=== PATIENT | female | born 1955 | race Caucasian/White ===

== ENCOUNTER 2016-08-05 04:05 | Inpatient (IN) | payer OTHER ==
[~2016-08-05] VITALS: Ht 162.6 cm; Wt 68.0 kg
[2016-08-05] VITALS (8 sets, daily range): BP systolic 100–150
[~2016-08-05 04:05] MED LIST: ACET-2165 PO; ALBU2.5V7 INH; ALPR0.2583 PO; BACL10TA PO; CLON0.5T4 PO; DEXT1CAP3 PO; DIVA125C4 PO; DOCU-144 PO; FLUT16SP16 NS; GABA-531 PO; LACT10SO66 PO; LAMO150T2 PO; LATA2.5D6 OP; OMEP20CA10 PO; OXYC-133 PO; POTA20LI PO; RESEYE OP; SERT100T PO; TIMO5DRO4 OP; ZOLP5TAB2 PO
--- NOTE | 2016-08-05 04:05 | NUR ---
Patient to ER bed 4 to gown for evaluation. Side rails up. Report given to NEHA RAJAN.
--- NOTE | 2016-08-05 04:06 | NUR ---
ER at bedside examining patient.
--- NOTE | 2016-08-05 04:10 | NUR ---
Patient arrived to ED ALOC with c/o R hip pain secondary to fall. Patient brought in by BLS coming from assisted living. Fall unwitnessed. No KO. No obvious deformitiy noted to the leg. History of CVA with R sided weakness. PMS present to the affected extremity. Will continue to monitor.
[2016-08-05] MEDS ORDERED: NACL 0.9% 1,000 ML IV ONE (05:17)
[2016-08-05] MEDS ORDERED: HYDROmorphone 1 MG INJ. 1 MG/ML AMPUL IVP ONE (05:30)
[2016-08-05] MEDS ORDERED: PROMETHAZINE HCL 25 MG/ML AMP IVP ONE (05:30)
[2016-08-05] MEDS ORDERED: ONDANSETRON HCL 4 MG/2 ML VIAL IVP PRN (05:45)
--- NOTE | 2016-08-05 05:45 | NUR ---
Radiology at bedside.
--- NOTE | 2016-08-05 06:36 | NUR ---
ADMISSION NOTE: Received patient from ER via gurney. Patient admitted with diagnosis of Right sided Thigh pain. Patient is awake, confused. Patient oriented to hospital room, call light, toileting, pain management and safety-teach back done. Patient informed that Katalina will be her nurse and that their room number is 112A. Personal belongings checked and Belongings List documented. Call light within reach.
[2016-08-05 06:39] LABS: PROTHROMBIN TIME 10.7 SECS (9.5-12.5)
[2016-08-05 06:40] LABS: CALCIUM 8.8 mg/dL (8.4-11.0); CREATININE 0.68 mg/dL (0.55-1.30); POTASSIUM 3.8 mmol/L (3.5-5.1)
[2016-08-05 06:45] LABS: ALBUMIN 3.4 g/dL (3.4-4.8); TOTAL BILIRUBIN 0.2 mg/dL (0.0-1.0); TOTAL PROTEIN, SERUM 8.1 g/dL (6.4-8.3)
--- NOTE | 2016-08-05 06:45 | NUR ---
Patient will be admitted to care of Dr. Gracia. Admitted to med/surg unit. Will go to room 112A. Belongings list completed. Summary report printed. Report will be given at bedside.
--- NOTE | 2016-08-05 07:46 | NUR ---
CONSULT ORTHO RIGHT FEMUR FRACTURE DR CROCKETT [phone] S/W JERRY NEWELL @ [phone]
--- NOTE | 2016-08-05 08:35 | NUR ---
INTIAL NOTE PT LAYING IN BED, EASY TO AROUSE, APPEARS CONFUSED AND DISORIENTED, SLURRED SPEECH, DIFFICULT TO UNDERSTAND, PT CANNOT STATE WHERE SHE IS OR WHERE SHE COMES FROM, PT ORIENTED TO ROOM AND USE OF CALL LIGHT , PT VERBALIZED UNDERSTANDING, SAFETY MEASURES IN PLACE, CALL LIGHT WITHIN REACH, WILL CONTINUE TO MONITOR Addendum: 08/05/16 at 1950 by Katalina Araiza RN IMPLANTED DEVICE NOTED TO PATIENTS LEFT LOWER ABDOMEN PER CONSERVATOR PT HAS AN IMPLANTED PAIN DEVICE.
--- NOTE | 2016-08-05 08:44 | NUR ---
Nutrition Update Roland Scale 17 noted. Pt admitted for R femur fracture. Diet: 2 gm Na BMI: 25.6 kg/m2 RD to follow per nutrition care standards.
[2016-08-05] MEDS ORDERED: ALBUTEROL SULFATE 0.083% 2.5 MG/3 ML VIAL.NEB INH PRN (08:45)
[2016-08-05] MEDS ORDERED: LACTULOSE 20 GM/30 ML UDC PO SCH (08:45)
[2016-08-05] MEDS ORDERED: ZOLPIDEM TARTRATE 5 MG TABLET PO SCH (08:45)
[2016-08-05] MEDS ORDERED: ALPRAZolam 0.25 MG TABLET PO SCH (08:45)
[2016-08-05] MEDS ORDERED: ACETAMINOPHEN 325 MG TABLET PO PRN ×2 (08:45)
[2016-08-05] MEDS: TIMOLOL MALEATE 0.5% OPHTHALMIC DROPS 5 ML OP SCH ×2 (09:00→21:22)
[2016-08-05] MEDS: cycloSPORINE 0.05%, 0.4 ML OPHTHALMIC EMULSION DROPERETTE OP SCH ×2 (09:00→21:23)
[2016-08-05] MEDS: FLUTICASONE PROPIONATE 50 mCg/SPRAY 16 GM NS SCH (09:00)
[2016-08-05] MEDS ORDERED: ALPRAZolam 0.25 MG TABLET PO PRN (09:15)
[2016-08-05] MEDS: ENOXAPARIN SODIUM 40 MG/0.4 ML SYRINGE SUBCUT SCH (09:46)
[2016-08-05] MEDS: GABAPENTIN 300 MG CAPSULE PO SCH ×3 (09:47→21:22)
[2016-08-05] MEDS: DIVALPROEX SODIUM 125 MG CAP.(DEPAKOTE SPRINKLE) PO SCH ×2 (09:47→21:24)
[2016-08-05] MEDS: OMEPRAZOLE 20 MG CAPSULE.DR (PriLOSEC) PO SCH (09:47)
[2016-08-05] MEDS: DOCUSATE SODIUM 100 MG CAPSULE PO SCH ×2 (09:47→21:23)
[2016-08-05] MEDS: BACLOFEN 10 MG TABLET PO SCH ×3 (09:48→21:24)
[2016-08-05] MEDS: clonazePAM 0.5 MG TABLET PO SCH ×2 (09:48→21:24)
[2016-08-05] MEDS: SERTRALINE HCL 50 MG TABLET PO SCH (09:49)
[2016-08-05] MEDS: LamoTRIgine 25 MG TABLET PO SCH ×2 (09:50→21:24)
--- NOTE | 2016-08-05 10:00 | NUR ---
ROUNDS PT CLEANED AND REPOSITIONED WITH PILLOW SUPPORT, NO S/S OF DISTRESS OR PAIN UNLESS MOVED, ALL NEEDS ATTENDED TO, SAFETY MEASURES IN PLACE,, CALL LIGHT WITHIN REACH, BED IN LOW POSITION AND LOCKED, WILL CONTINUE TO MONITOR
--- NOTE | 2016-08-05 11:31 | NUR ---
CONSERVATOR SHERMAN RYAN CALLED TO BE UPDATED ON PATIENTS STATUS, MADE AWARE OF HER DIAGNOSIS AND PHYSICIANS INVOLVED IN HER CARE, CONSERVATOR TO FOLLOW, MAY CONTACT HIM AT .
--- NOTE | 2016-08-05 12:29 | NUR ---
ROUNDS PT LAYING IN BED, RESTING, NO S/S OF DISTRESS OR PAIN, EVEN RISE AND FALL OF CHEST NOTED, SAFETY MEASURES IN PLACE, CALL LIGHT WITHIN REACH, SEIZURE PADS IN PLACE, BED IN LOW POSITION AND LOCKED, WILL CONTINUE TO MONITOR
--- NOTE | 2016-08-05 13:30 | NUR ---
DR CLARK MAKING ROUNDS, PT ASSESSED, MD JJ CASTRO CATHETER PLACEMENT, PT MADE AWARE AND AGREES, WILL FOLLOW UP
--- NOTE | 2016-08-05 14:12 | NUR ---
DR CLARK CALLEDMD STATED THAT HE SPOKE WITH CONSERVATOR FOR PT SHERMAN TEJADA INQUIRED IF PT WAS ABLE TO TRANSFER TO [facility] AND RECEIVE HER CARE, WILL FOLLOW UP WITH CASE MANAGEMENT AND NOTIFY DR STREETER TO CALL AND SPEAK WITH SHERMAN ALSO REGARDING CARE
--- NOTE | 2016-08-05 14:30 | NUR ---
CASTRO CATH: # 16 FR Castro catheter with 0 cc bulb inserted with use of sterile technique. Bulb inflated with 10 cc sterile water. Immediate return of 150 cc YELLOW urine noted. Bedside drainage bag placed below level of bladder. Urine sample collected and sent to lab at 1430. Pt tolerated procedure WELL.
[2016-08-05 14:52] LABS: BILIRUBIN,URINE NEGATIVE (NEGATIVE); CLARITY/URINE SL HAZY (CLEAR); COLOR,URINE YELLOW (YELLOW); GLUCOSE,URINE NEGATIVE (NEGATIVE); KETONES,URINE NEGATIVE (NEGATIVE); LEUKOCYTE ESTERASE ,URINE NEGATIVE (NEGATIVE); NITRITE, URINE POSITIVE (NEGATIVE); PROTEIN URINE NEGATIVE (NEGATIVE); UROBILINOGEN,URINE 0.2 (0.2-1.0)
[2016-08-05 15:03] LABS: BLOOD, URINE TRACE (NEGATIVE)
[2016-08-05] MEDS: MORPHINE 2 MG/ML INJ. SYRINGE IVP PRN ×2 (15:38→21:25)
--- NOTE | 2016-08-05 15:45 | NUR ---
ROUNDS PT REQUESTING PAIN MEDICATION AND ADMINISTERED PAIN MEDICATION AND REPOSITIONED PT WITH PILLOW SUPPORT, TV TURNED ON, PT HENSLEY COMFORTABLE, FEED AN APPLE SAUCE WITH MEDICATIONS, PT TOLERATED WELL, CALL LIGHT WITHIN REACH, SAFETY MEASURES IN PLACE, WILL FOLLOW UP
[2016-08-05 16:01] LABS: BACTERIA,URINE MODERATE /HPF (None Seen); RBC,URINE 0-3 /HPF (0-3)
[2016-08-05 16:02] LABS: MUCUS,URINE None Seen /LPF (None Seen); URINE AMORPHOUS PHOSPHATES 2+ /HPF (None Seen)
--- NOTE | 2016-08-05 17:44 | NUR ---
ROUNDS PT RESTING, SO S/S OF DISTRESS OR PAIN EVEN RISE AND FALL OF CHEST NOTED, TV ON PER PT REQUEST, SAFETY MEASURES IN PLACE, WILL CONTINUE TO MONITOR
[2016-08-05] MEDS: OXYCODONE/ACETAMINOPHEN *10*mg/325 mg TABLET PO PRN (18:15)
--- NOTE | 2016-08-05 18:31 | NUR ---
PATIENT FEED MASHED POTATOES, APPLE SAUCE AND CRANBERRY SAUCE, ABLE TO TOLERATE FOOD WELL, ADMINISTERED ORAL PAIN MEDICATION. SAFETY MEASURES IN PLACE, CALL LIGHT WITHIN REACH, WILL FOLLOW UP
--- NOTE | 2016-08-05 19:00 | NUR ---
CLOSING NOTE PT RESTING, EASY TO AROUSE, NO S/S OF DISTRESS OR SOB NOTED, PT COMPLAINS OF PAIN, WILL ENDORSE TO FOLLOWING SHIFT, PT FORGETS OF INJURY AND ATTEMPT TO MOVE LEG CAUSE BREAKTHROUGH PAIN, IV TO RIGHT HAND INTACT, CASTRO CATHETER IN PLACE AND DRAINING TO GRAVITY, ALL NEEDS ATTENDED TO THROUGH OUT SHIFT, SAFETY MEASURES MAINTAINED, BED IN LOW POSITION AND LOCKED, WILL GIVE REPORT TO FOLLOWING SHIFT.
--- NOTE | 2016-08-05 19:50 | NUR ---
INITIAL NOTE PT. RECEIVED DROWSY, BUT EASILY AROUSES. VSS WITH SLIGHTLY ELEVATED HEART RATE OF 101. AFEBRILE. SATING AT 94% ON ROOM AIR. PT. STATES SHE IS HAVING PAIN 10/10 AT THIS TIME. PT. WAS GIVEN PERCOCET, WILL GIVE MORPHINE ORDERED AT NEXT SCHEDULED DOSE FOR SEVERE PAIN. IV ACCESS TO RIGHT HAND, NO INFILTRATION NOTED. LEFT ABDOMINAL PAIN PUMP PALPATED. CASTRO CATHETER DRAINING TO GRAVITY. RIGHT UPPER LEG IS WARM TO TOUCH AND SWOLLEN AT THE KNEE UP, PT. HAS IT BENT AT THIS TIME. WILL LEAVE IT IN THIS POSITION FOR NOW TO AVOID CAUSING PAIN AND INJURING THE PT. PER DAY SHIFT BON HARDY WAS CALLED TODAY, NO CALL BACK AND HAS NOT YET SEEN THE PT. WILL WAIT TO HEAR BACK OR FOLLOW UP IN AM. SEIZURE PRECAUTIONS ARE IN PLACE, WITH SIDE RAILS PADDED. PLAN OF CARE HAS BEEN DISCUSSED, PT. VERBALIZES UNDERSTANDING. WILL CONT. TO MONITOR FOR ANY CHANGES. SAFETY AND FALL PRECAUTIONS IN PLACE. CALL LIGHT IN REACH, BED ALARM ON.
[2016-08-05] MEDS: LATANOPROST 2.5 ML DROPS (XALATAN) OP SCH (21:00)
[2016-08-05] MEDS: cefTRIAXone 1 GM in D5W 50 ML IV SCH (21:21)
--- NOTE | 2016-08-05 22:00 | NUR ---
rounds pt. was given prn morphine for pain. pt. stated she was having pain 6/10 at the time the medication was administered. with the assistance of occupational therapy co director and another rn, pt. was carefully repositioned to a comfortable position. pm medications were given with no aspiration noted. will cont. to monitor the pt. for any changes. safety and fall precautions in place. call light in reach.
--- NOTE | 2016-08-06 01:03 | NUR ---
rounds pt. resting in bed with eyes closed. chest rise and fall noted. no facial grimacing indicating any pain. will cont. to monitor for any changes. safety, fall and seizure precautions in place. call light in reach.
--- NOTE | 2016-08-06 02:35 | NUR ---
rounds pt. resting in bed with eyes closed. chest rise and fall noted. no s/s of sob or distress noted. no facial grimacing indicating pain. will cont. to monitor for changes. safety and fall precautions in place. call light in reach.
[2016-08-06] MEDS: MORPHINE 2 MG/ML INJ. SYRINGE IVP PRN ×3 (04:03→12:44)
--- NOTE | 2016-08-06 04:06 | NUR ---
ROUNDS PT. GIVEN PRN MORPHINE FOR PAIN. NO OTHER SIGNS OF DISTRESS NOTED AT THIS TIME. WILL CONT. TO MONITOR FOR CHANGES. SAFETY, FALL AND SEIZURE PRECAUTIONS IN PLACE. CALL LIGHT IN REACH.
[2016-08-06 04:28] VITALS: BP_SYST 117
--- NOTE | 2016-08-06 04:56 | NUR ---
Paged Dr. Rios for orders
--- NOTE | 2016-08-06 04:59 | NUR ---
pain/ md call dr franco paged for something stronger for pt pain. pt is heard yelling from the nurses station. claims to now have pain 10/10 despite being given morphine less than an hour ago. will follow up.
--- NOTE | 2016-08-06 05:21 | NUR ---
PAGED DR MANZO FOR ORDERS SECOND CALL
--- NOTE | 2016-08-06 05:23 | NUR ---
md call second call to dr franco. pt. is still heard yelling from the nurses station due to pain. informed pt. that md has been paged. pt verbalizes understanding.
--- NOTE | 2016-08-06 06:30 | NUR ---
CLOSING NOTES PT. RESTING IN BED QUIETLY AT THIS TIME. HAVE NOT RECEIVED A CALL BACK YET FROM MD. WILL NOTIFY DAY NURSE AND HAVE THEM FOLLOW UP. SAFETY, FALL AND SEIZURE PRECAUTIONS WERE MAINTAINED. CALL LIGHT REMAINS IN REACH.
[2016-08-06 07:01] LABS: BASOPHILS % (AUTO) 0.4 % (0.0-2.0); EOSINOPHILS # (AUTO) 0.1 K/uL (0.0-0.4); EOSINOPHILS % (AUTO) 0.8 % (0.0-4.0); HEMATOCRIT 29.9 % (36-48); LYMPHOCYTES # (AUTO) 2.9 K/uL (1.0-5.5); LYMPHOCYTES % (AUTO) 23.1 % (20.5-51.5); MEAN CORPUSCULAR HEMOGLOBIN 28 pg (27-31); MEAN CORPUSCULAR HGB CONC 33 % (32-36); MEAN CORPUSCULAR VOLUME 85 fL (79.0-98.0); MONOCYTES # (AUTO) 1.1 K/uL (0.0-1.0); MONOCYTES % (AUTO) 8.9 % (1.7-9.3); NEUTROPHILS # (AUTO) 8.4 K/uL (1.8-7.7); NEUTROPHILS % (AUTO) 66.8 % (40.0-70.0); PLATELET COUNT (AUTO) 256 K/uL (130-430); RED BLOOD CELL COUNT(AUTO) 3.52 MIL/uL (4.2-6.2); WHITE BLOOD COUNT (AUTO) 12.5 K/uL (4.8-10.8)
[2016-08-06 07:16] LABS: INR 1.1 (0.8-1.2); PROTHROMBIN TIME 11.4 SECS (9.5-12.5)
[2016-08-06 08:00] VITALS: BP_SYST 108
--- NOTE | 2016-08-06 08:00 | NUR ---
RN Opening Note patient lying on bed, have pain, patient vital signs are stable, patient was given her pain med as . will follow up
[2016-08-06] MEDS: TIMOLOL MALEATE 0.5% OPHTHALMIC DROPS 5 ML OP SCH ×2 (08:19→21:04)
[2016-08-06] MEDS: FLUTICASONE PROPIONATE 50 mCg/SPRAY 16 GM NS SCH (08:19)
[2016-08-06] MEDS: ENOXAPARIN SODIUM 40 MG/0.4 ML SYRINGE SUBCUT SCH (08:20)
[2016-08-06] MEDS: DOCUSATE SODIUM 100 MG CAPSULE PO SCH ×2 (08:20→21:06)
[2016-08-06] MEDS: BACLOFEN 10 MG TABLET PO SCH ×3 (08:20→21:06)
[2016-08-06] MEDS: clonazePAM 0.5 MG TABLET PO SCH ×2 (08:21→21:05)
[2016-08-06] MEDS: SERTRALINE HCL 50 MG TABLET PO SCH (08:21)
[2016-08-06] MEDS: DIVALPROEX SODIUM 125 MG CAP.(DEPAKOTE SPRINKLE) PO SCH ×2 (08:23→21:05)
[2016-08-06] MEDS: OXYCODONE/ACETAMINOPHEN *10*mg/325 mg TABLET PO PRN ×3 (08:23→21:06)
[2016-08-06] MEDS: GABAPENTIN 300 MG CAPSULE PO SCH ×3 (08:23→21:08)
[2016-08-06] MEDS: cycloSPORINE 0.05%, 0.4 ML OPHTHALMIC EMULSION DROPERETTE OP SCH ×2 (08:24→21:03)
[2016-08-06] MEDS: OMEPRAZOLE 20 MG CAPSULE.DR (PriLOSEC) PO SCH (08:42)
--- NOTE | 2016-08-06 10:00 | NUR ---
RN Rounds patient lying on bed, open eyes alert, can talk, patient denies pain , the TV was turned on for the patient as per her request
[2016-08-06 12:49] VITALS: BP_SYST 107
[2016-08-06] MEDS: LamoTRIgine 25 MG TABLET PO SCH ×2 (13:32→21:08)
[2016-08-06 16:33] VITALS: BP_SYST 94
--- NOTE | 2016-08-06 18:00 | NUR ---
RN Closing Notes patient lying on bed, denies pain or discomfort, will sign off to next shift
--- NOTE | 2016-08-06 19:05 | NUR ---
paged paged for Dr Bravo, dialed .
--- NOTE | 2016-08-06 19:40 | NUR ---
PM ASSESSMENT PT A/OX3, AFEBRILE. APHAGIC. NO SOB OR DISTRESS. LUNG SOUNDS BILAT CLEAR. +BOWEL SOUNDS. RT SIDED WEAKNESS. POC DISCUSSED, PT NODDED UNDERSTANDING. ORIENTED TO CALL LIGHT & W/IN REACH, SAFETY PRECAUTIONS IN PLACE, WILL CONTINUE TO MONITOR.
[2016-08-06] MEDS: LATANOPROST 2.5 ML DROPS (XALATAN) OP SCH (21:07)
[2016-08-06] MEDS: cefTRIAXone 1 GM in D5W 50 ML IV SCH (21:07)
--- NOTE | 2016-08-06 22:03 | NUR ---
RN ROUNDS PT IN BED SLEEPING CHEST RISING AND FALLING, NO DISTRESS NOTED. CALL LIGHT W/IN REACH, SAFETY PRECAUTIONS IN PLACE, WILL CONTINUE TO MONITOR.
[2016-08-07 00:12] VITALS: BP_SYST 119
--- NOTE | 2016-08-07 01:03 | NUR ---
RN ROUNDS PT IN BED SLEEPING CHEST RISING AND FALLING, NO DISTRESS NOTED. CALL LIGHT W/IN REACH, SAFETY PRECAUTIONS IN PLACE, WILL CONTINUE TO MONITOR.
--- NOTE | 2016-08-07 03:18 | NUR ---
RN ROUNDS PT IN BED SLEEPING CHEST RISING AND FALLING, NO DISTRESS NOTED. CALL LIGHT W/IN REACH, SAFETY PRECAUTIONS IN PLACE, WILL CONTINUE TO MONITOR.
[2016-08-07 04:46] VITALS: BP_SYST 115
[2016-08-07] MEDS: MORPHINE 2 MG/ML INJ. SYRINGE IVP PRN ×4 (05:16→23:34)
--- NOTE | 2016-08-07 05:16 | NUR ---
PAIN MEDICATED PT BEFORE TURNING PT, PT TOLERATED WELL. CALL LIGHT W/IN REACH, SAFETY PRECAUTIONS IN PLACE, WILL CONTINUE TO MONITOR.
--- NOTE | 2016-08-07 07:20 | NUR ---
closing endorsed care at bedside to day nurse jose vila.
--- NOTE | 2016-08-07 08:00 | NUR ---
patient is A/Ox2, grimacing in pain, and nods when asked if her right hip hurts. Right side contracted. Iv on right hand, #22, SL. Patient incontinent. Call light in place, bed at lowest position, will continue to monitor.
[2016-08-07] MEDS: BACLOFEN 10 MG TABLET PO SCH ×3 (09:00→22:50)
[2016-08-07] MEDS: LamoTRIgine 25 MG TABLET PO SCH ×2 (09:00→23:04)
[2016-08-07] MEDS: GABAPENTIN 300 MG CAPSULE PO SCH ×3 (09:00→22:51)
[2016-08-07] MEDS: OXYCODONE/ACETAMINOPHEN *10*mg/325 mg TABLET PO PRN ×2 (09:47→16:00)
[2016-08-07] MEDS: cycloSPORINE 0.05%, 0.4 ML OPHTHALMIC EMULSION DROPERETTE OP SCH ×2 (09:49→22:51)
[2016-08-07] MEDS: TIMOLOL MALEATE 0.5% OPHTHALMIC DROPS 5 ML OP SCH ×2 (09:49→22:51)
[2016-08-07] MEDS: FLUTICASONE PROPIONATE 50 mCg/SPRAY 16 GM NS SCH ×2 (09:50→22:51)
--- NOTE | 2016-08-07 09:54 | NUR ---
patient refused meds except oral pain meds, eye drops, and nasal spray despite encouragement.
--- NOTE | 2016-08-07 12:12 | NUR ---
PATIENT IS RESTING, STILL HAS PAIN, BUT UNDER CONTROL AT THIS TIME. WILL CONTINUE TO MONITOR.
[2016-08-07 12:27] VITALS: BP_SYST 112
--- NOTE | 2016-08-07 13:40 | NUR ---
PATIENT IS GRIMACING IN PAIN. 3MG MORPHINE IVP IS GIVEN.
[2016-08-07] MEDS: ENOXAPARIN SODIUM 40 MG/0.4 ML SYRINGE SUBCUT SCH (13:42)
[2016-08-07] MEDS: SERTRALINE HCL 50 MG TABLET PO SCH (13:46)
[2016-08-07] MEDS: DIVALPROEX SODIUM 125 MG CAP.(DEPAKOTE SPRINKLE) PO SCH ×2 (13:46→23:03)
[2016-08-07] MEDS: OMEPRAZOLE 20 MG CAPSULE.DR (PriLOSEC) PO SCH (13:46)
[2016-08-07] MEDS: clonazePAM 0.5 MG TABLET PO SCH ×2 (13:46→22:51)
[2016-08-07] MEDS: DOCUSATE SODIUM 100 MG CAPSULE PO SCH ×2 (13:47→22:50)
--- NOTE | 2016-08-07 16:00 | NUR ---
PATIENT STILL C/O PAIN. PERCOCET IS GIVEN PO FOR DISCOMFORT.
[2016-08-07 16:26] VITALS: BP_SYST 106
--- NOTE | 2016-08-07 18:00 | NUR ---
patient is resting; still expresses that on the right hip is still present, but she is not currently grimacing.
[2016-08-07 19:45] VITALS: BP_SYST 103
--- NOTE | 2016-08-07 20:00 | NUR ---
NOTES; SEEN PT IN BED, ON AIR MATTRESS. APPEARED TO BE SLEEPING. EASILY AROUSED. NO ACUTE DISTRESS NOTED. BP 103/64, HR 95,RESP 20, O2 SAT 93%, AFEBRILE. PT IS APHASIC, ABLE TO MUMBLE AND USE NODDING HEAD FOR SIMPLE YES AND NO QUESTIONS. RT SIDE CONTRACTED. RT FOOT WITH 2+ PITTING EDEMA. CASTRO CATHETER DRAINING TO GRAVITY, MICHELLE URINE OUT PUT. CASTRO SECUREMENT IN PLACE. IV SALINE LOCK TO THE RT HAND, GAUGE 22, PATENT. NOTED SLIGHT REDNESS TO IV SITE; WILL MONITOR. PT NODDED NO FOR PAIN AT THIS TIME. BED LOCKED AND IN LOW POSITION, BED ALARM ON. SIDE RAILS UP X3. INSTRUCTED PT ON THE USE OF CALL LIGHT TO CALL FOR ANY NEED TO ASSIST. PT NODDED YES FOR UNDERSTANDING. CALL LIGHT IN PT HAND. BEDSIDE TABLE WITHIN REACH. WILL CONTINUE TO MONITOR.
[2016-08-07] MEDS: LATANOPROST 2.5 ML DROPS (XALATAN) OP SCH (21:00)
--- NOTE | 2016-08-07 22:00 | NUR ---
NOTES; PT REFUSED TO BE REPOSITIONED. INFORMED PT ABOUT IMPORTANCE OF REPOSITIONING AND TURNING, TO PREVENT SKIN FROM BREAKING DOWN. PT STILL REFUSED.
[2016-08-07] MEDS: cefTRIAXone 1 GM in D5W 50 ML IV SCH (22:12)
--- NOTE | 2016-08-07 23:30 | NUR ---
PATIENT REFUSAL WHILE PERFORMING NURSING ASSESSMENT PATIENT REFUSED TO ALLOW TO BE TURNED ON HER SIDE, AND WOULD NOT ALLOW FOR INSPECTION OF HER POSTERIOR.
--- NOTE | 2016-08-08 | NUR ---
NOTES; RESTING, EASILY AROUSED. PT REFUSED TO BE REPOSITIONED. INFORMED PT ABOUT IMPORTANCE OF REPOSITIONING AND TURNING, TO PREVENT SKIN FROM BREAKING DOWN. PT STILL REFUSED. RN COVERING AND CHARGE NURSE NOTIFIED.
[2016-08-08 01:57] VITALS: BP_SYST 128
--- NOTE | 2016-08-08 02:00 | NUR ---
NOTES; PULLED UP AND REPOSITION IN BED. PT TOLERATED TURNING WELL. SAFETY MEASURES IN PROGRESS.
[2016-08-08] MEDS: MORPHINE 2 MG/ML INJ. SYRINGE IVP PRN ×4 (03:53→18:04)
--- NOTE | 2016-08-08 04:00 | NUR ---
NOTES; RESTING QUIETLY, EASILY AROUSED. SAFETY MEASURES IN PROGRESS.
[2016-08-08 04:33] VITALS: BP_SYST 115
[2016-08-08] MEDS: OXYCODONE/ACETAMINOPHEN *10*mg/325 mg TABLET PO PRN ×2 (06:01→22:37)
--- NOTE | 2016-08-08 06:30 | NUR ---
NOTES; MEDICATED WITH PAIN MEDICATION NEEDED. NO ACUTE DISTRESS NOTED. PT STATED EFFECTIVE PAIN MEDICATION. ALL NEEDS ATTENDED, SAFETY MEASURES IN PROGRESS.
--- NOTE | 2016-08-08 07:29 | NUR ---
NOTES; NO SEIZURE ACTIVITIES THROUGH THE NIGHT. SEIZURE PRECAUTION IN PLACE. SAFETY MEASURES MAINTAINED. ALL NEEDS ATTENDED. CALL LIGHT IN PT HAND.
[2016-08-08 07:51] LABS: BASOPHILS % (AUTO) 0.3 % (0.0-2.0); EOSINOPHILS # (AUTO) 0.2 K/uL (0.0-0.4); HEMATOCRIT 27.4 % (36-48); LYMPHOCYTES # (AUTO) 3.3 K/uL (1.0-5.5); LYMPHOCYTES % (AUTO) 33.1 % (20.5-51.5); MEAN CORPUSCULAR HEMOGLOBIN 28 pg (27-31); MEAN CORPUSCULAR HGB CONC 33 % (32-36); MEAN CORPUSCULAR VOLUME 85 fL (79.0-98.0); MONOCYTES # (AUTO) 0.8 K/uL (0.0-1.0); MONOCYTES % (AUTO) 8.2 % (1.7-9.3); NEUTROPHILS # (AUTO) 5.6 K/uL (1.8-7.7); NEUTROPHILS % (AUTO) 56.4 % (40.0-70.0); PLATELET COUNT (AUTO) 245 K/uL (130-430); RED BLOOD CELL COUNT(AUTO) 3.21 MIL/uL (4.2-6.2); WHITE BLOOD COUNT (AUTO) 9.9 K/uL (4.8-10.8)
--- NOTE | 2016-08-08 08:00 | NUR ---
OPENING NOTES, PATIENT IN BED, SLEEPING, NO C/O PAIN, NO SOB, NO DISTRESS. CALL LIGHT IN REACH. BED IN LOW POSITION. BED ALARM ON. IV ACCESS PATENT AND INFUSING WELL. IV SITE. CLEAN AND DRY. CASTRO CATH DRAINING WELL. CASTRO AT FOOT OF BED. WILL CONT TO MONITOR.
[2016-08-08 08:12] LABS: CALCIUM 8.4 mg/dL (8.4-11.0); CREATININE 0.54 mg/dL (0.55-1.30); POTASSIUM 3.9 mmol/L (3.5-5.1)
[2016-08-08 08:15] VITALS: BP_SYST 104
[2016-08-08] MEDS: OMEPRAZOLE 20 MG CAPSULE.DR (PriLOSEC) PO SCH (09:01)
[2016-08-08] MEDS: BACLOFEN 10 MG TABLET PO SCH ×3 (09:01→21:57)
[2016-08-08] MEDS: GABAPENTIN 300 MG CAPSULE PO SCH ×3 (09:01→21:58)
[2016-08-08] MEDS: DOCUSATE SODIUM 100 MG CAPSULE PO SCH ×2 (09:01→21:57)
[2016-08-08] MEDS: DIVALPROEX SODIUM 125 MG CAP.(DEPAKOTE SPRINKLE) PO SCH ×2 (09:01→21:58)
[2016-08-08] MEDS: SERTRALINE HCL 50 MG TABLET PO SCH (09:02)
[2016-08-08] MEDS: ENOXAPARIN SODIUM 40 MG/0.4 ML SYRINGE SUBCUT SCH (09:02)
[2016-08-08] MEDS: clonazePAM 0.5 MG TABLET PO SCH ×2 (09:02→21:57)
[2016-08-08] MEDS: TIMOLOL MALEATE 0.5% OPHTHALMIC DROPS 5 ML OP SCH ×2 (09:07→22:00)
[2016-08-08] MEDS: cycloSPORINE 0.05%, 0.4 ML OPHTHALMIC EMULSION DROPERETTE OP SCH ×2 (09:41→22:00)
[2016-08-08] MEDS: LamoTRIgine 25 MG TABLET PO SCH ×2 (09:41→22:22)
--- NOTE | 2016-08-08 10:00 | NUR ---
ROUNDING NOTES PT IN BED, SLEEPING COMFORTABLY, NO S/SX OF PAIN, PT WAS GIVEN PAIN MED AT 0943 AM. CALL LIGHT IN REACH, BED IN LOW POSITION. BED ALARM ON. WILL CONT TO MONITOR.
--- NOTE | 2016-08-08 12:00 | NUR ---
ROUNDING NOTES, PT IN BED, NO C/O PAIN, NO SOB, CALL LIGHT IN REACH. TOLD PATIENT OF POSSIBLE SURGERY TODAY SO SHE WILL BE NO FOOD NO WATER AT LUNCH TIME. BED IN LOW POSITION. BED ALARM ON. WILL CONT TO MONITOR.
--- NOTE | 2016-08-08 12:35 | NUR ---
Discharge Planning Received phone call from patient's conservator, Dale Khan cell # [phone], who states that he has not received a phone call from Dr Bravo to discuss plan for surgery on this patient. Sunny stated that he would be agreeable to surgery being performed here but is frustrated that surgeon has not contacted him. I told Sunny that is was my understanding that a "special plate" was being ordered to perform surgery. I spoke with LIZBET Alves and she stated that she already has a page out to Dr Bravo regarding this patient. She has the Conservator's # and will ask Dr Bravo to give him a call.
--- NOTE | 2016-08-08 12:42 | NUR ---
Late entry Paged DR. Bravo at 1215 noon , to follow up the surgery plan . Addendum: 08/08/16 at 1301 by Joselyn Rose RN Spoke to Dr. BRAVO he will call the conservator today he has the phone number and then will call us back if he will do the surgery tomorrow.
[2016-08-08 12:47] VITALS: BP_SYST 122
--- NOTE | 2016-08-08 14:00 | NUR ---
ROUNDING NOTES. TOLD PATIENT THAT SURGERY WILL NOT BE DONE TODAY PER MD, OFFERED FOOD BUT PT REFUSED. NO C/O PAIN, NO SOB, CALL LIGHT IN REACH. BED IN LOW POSITION. BED ALARM ON. WILL CONT TO MONITOR.
--- NOTE | 2016-08-08 16:00 | NUR ---
ROUNDING NOTES, PT IN BED, PT ASLEEP , NO S/SX PAIN, NO SOB, CALLIGHT IN REACH. BED IN LOW POSITION. BED ALARM ON. WILL CONT TO MONITOR.
[2016-08-08 16:32] VITALS: BP_SYST 116
--- NOTE | 2016-08-08 18:00 | NUR ---
CLOSING NOTES, PT IN BED, NO PAIN THIS TIME, NO SOB, NO DISTRESS, CALL LIGHT IN REACH, BED IN LOW POSITION. PT REMAINED SAFE, NO UNTOWARD INCIDENT THIS SHIFT. WILL ENDORSE TO NIGHT RN. -- DR XIE WAS PAGE TO CHECK IF HE WAS ABLE TO CALL PT'S CONSERVATOR AND ALSO TO CHECK IF HE WILL DO SURGERY IN THE MORNING. DR GOMEZ (CASTING MACHINE OPERATOR) CALLED BACK AND EXPLAINED TO MD WHY WE PAGED. DR GOMEZ SAID HE WILL TEXT DR XIE . WILL ENDORSE TO NIGHT RN.
--- NOTE | 2016-08-08 19:30 | NUR ---
CHANGE OF SHIFT: pt. awake, with garbled speech, hardly understands, moans and groans. repositioned.IV TKO via left wrist. call light within reach.
--- NOTE | 2016-08-08 20:00 | NUR ---
NOTES: pt. yelling every now and then, rt. hand swollen and contracted.noted rt. sided flaccid. able to move left arm well. pt. tries to communicate. HOB slight elevated. face grimaced, been given pain med on change of shift.
[2016-08-08 20:15] VITALS: BP_SYST 93
[2016-08-08] MEDS: cefTRIAXone 1 GM in D5W 50 ML IV SCH (20:32)
[2016-08-08] MEDS: LATANOPROST 2.5 ML DROPS (XALATAN) OP SCH (21:00)
--- NOTE | 2016-08-08 21:30 | NUR ---
NOTES: IV site infiltrated. been dozing on and off. patton cath to OSD.
--- NOTE | 2016-08-08 22:00 | NUR ---
NOTES: medications given with apple sauce and pt. tolerated well. charge nurse Calin inserted another IV site on left hand with gauge 22 needle.
[2016-08-09] VITALS (7 sets, daily range): BP systolic 105–131
--- NOTE | 2016-08-09 00:10 | NUR ---
ROUNDS: pt. sleeping when checked, was medicated earlier for c/o generalized pain. continue to monitor.
--- NOTE | 2016-08-09 02:22 | NUR ---
NOTES: pt. awakened and starts yelling, went to her room, covered with blanket since she's saying shes freezing. pt. reassured. able to drink water and tolerated well.
--- NOTE | 2016-08-09 04:15 | NUR ---
NOTES: complete am care done, does not want to turn or move . trying to scratch her private area. allan care done by MEHREEN Arteaga. noted rt. upper thigh tight and swollen. patton cath intact, cream applied
[2016-08-09] MEDS: MORPHINE 2 MG/ML INJ. SYRINGE IVP PRN ×3 (04:53→16:22)
--- NOTE | 2016-08-09 05:00 | NUR ---
NOTES: was medicated with Morphine for c/o generalized pain, repositioned after am care.
--- NOTE | 2016-08-09 06:20 | NUR ---
CLOSING NOTES: BEEN DOZING ON AND OFF, STILL YELLS WHENEVER SHE WAKES UP. NEEDS FURTHER CARE AND OBSERVATION. IV LOCK, CASTRO INTACT. RT. ARM SWOLLEN AND CONTRACTED. RT. THIGH SWOLLEN. WILL ENDORSE TO INCOMING SHIFT.
--- NOTE | 2016-08-09 07:35 | NUR ---
endorsed pt. to incoming shift with nurse Dominguez. endorsed that Dr. Bravo did not call if pt. going to have surgery or not. asked to follow up this am.pt. needs further care and assistance.
--- NOTE | 2016-08-09 08:04 | NUR ---
OPENING NOTE PATIENT C/O 8/10 PAIN PER FLACC IN LEFT LEG, HR 102, PULSE OX ON ROOM AIR IS 81, TEMPERATURE 99.7 ICE PACKS APPLIED TO LEG, BLANKETS REMOVED FROM BED. WILL REASSESS VITALS. LLQ PAIN PUMP NOTED IN ABDOMEN, LUNGS DIMINISHED IN BASES, ABDOMEN SOFT, DISTENDED AND NON TENDER
[2016-08-09] MEDS: SERTRALINE HCL 50 MG TABLET PO SCH (08:28)
[2016-08-09] MEDS: ENOXAPARIN SODIUM 40 MG/0.4 ML SYRINGE SUBCUT SCH (08:28)
[2016-08-09] MEDS: OMEPRAZOLE 20 MG CAPSULE.DR (PriLOSEC) PO SCH (08:28)
[2016-08-09] MEDS: GABAPENTIN 300 MG CAPSULE PO SCH ×3 (08:28→23:19)
[2016-08-09] MEDS: BACLOFEN 10 MG TABLET PO SCH ×3 (08:28→23:19)
[2016-08-09] MEDS: clonazePAM 0.5 MG TABLET PO SCH ×2 (08:28→23:18)
[2016-08-09] MEDS: DOCUSATE SODIUM 100 MG CAPSULE PO SCH ×2 (08:28→23:19)
[2016-08-09] MEDS: DIVALPROEX SODIUM 125 MG CAP.(DEPAKOTE SPRINKLE) PO SCH ×2 (08:29→23:18)
[2016-08-09] MEDS: LamoTRIgine 25 MG TABLET PO SCH ×2 (08:29→23:22)
[2016-08-09] MEDS: TIMOLOL MALEATE 0.5% OPHTHALMIC DROPS 5 ML OP SCH ×2 (08:30→23:20)
[2016-08-09] MEDS: FLUTICASONE PROPIONATE 50 mCg/SPRAY 16 GM NS SCH (08:30)
[2016-08-09] MEDS: cycloSPORINE 0.05%, 0.4 ML OPHTHALMIC EMULSION DROPERETTE OP SCH ×2 (08:31→23:20)
--- NOTE | 2016-08-09 09:20 | NUR ---
PATIENT MEDICATED PER ORDERS. MEDS CRUSHED AND FED WITH APPLESAUCE AND SIPS OF WATER. NO SIGNS OF ASPIRATION
[2016-08-09] MEDS: OXYCODONE/ACETAMINOPHEN *10*mg/325 mg TABLET PO PRN ×2 (09:41→16:23)
--- NOTE | 2016-08-09 12:15 | NUR ---
CONSERVATOR CALLED AND YELLED AT STAFF REGARDING PATIENT NOT GETTING HER SURGERY YET. EXPLAINED THAT THE SURGEON HAS BEEN WAITING ON SUPPLIES THAT WERE NOT ORIGINALLY AVAILABLE AT THIS FACILITY. CONSERVATOR CONTACTED BY KO TREVINO RN AND TOLD THAT DR XIE IS AWARE THAT THE PT NEEDS SURGERY AND HAS BEEN WAITING FOR SUPPLIES. NEHA CONNELL CONTACTED DR XIE' OFFICE ASKING STAFF TO HAVE HIM PLEASE CALL THE CONSERVATOR FOR UPDATES ON PATIENT'S STATUS. PATIENT IS CURRENTLY REPORTING PAIN PER DR GAUSTIN, HOWEVER PT HAS IMPLANTED MORPHINE PUMP AND HAS RECENTLY BEEN MEDICATED PER ORDERS, NO PAIN MEDICATIONS ARE DUE AT THIS TIME.
--- NOTE | 2016-08-09 12:53 | NUR ---
FOLLOW UP ORTHO CONSULTS SPOKE TO DR GOMEZ UTILITY WORKER [place] FOR DR XIE, MADE AWARE THAT PT NEEDS SURGERY AND BEEN WAITING FOR ORDER. PER LAST CONVERSATION WITH DR XIE, PT NEEDS A SPECIAL PLATES TO USE IN SURGERY AND WILL ARRIVE WEDNESDAY. DR GOMEZ SAID THAT HE WILL CALL DR XIE TO CALL US ABOUT THE PLAN OF SURGERY TO PATIENT. DR CLARK PCP OF PT SPOKE TO ALBERT THE CONSERVATOR OF PATIENT AND GAVE UPDATE. AWAITING FOR DR XIE TO CALL BACK.
--- NOTE | 2016-08-09 13:53 | NUR ---
ORTHO FOLLOW UP SPOKE TO DR XIE AND SAID THAT HE WILL COME TODAY AND WILL SCHEDULE THE SURGERY TOMORROW. HE WILL TALK TO THE CONSERVATOR ONCE HE ARRIVE IN THE HOSPITAL. ALBERT ROBLES MADE AWARE, DR CLARK MADE AWARE.
--- NOTE | 2016-08-09 16:23 | NUR ---
morphine and percoset given at 1500 with baclofen and gabapentin. returned to chart to see medications had not saved when they were administered. both meds were not given at 1625, they were given at 1500
--- NOTE | 2016-08-09 16:40 | NUR ---
pt refuse to eat breakfast and lunch nurse is aware
--- NOTE | 2016-08-09 17:34 | NUR ---
patient is screaming in her room indicating something is wrong with her right hip. offered to reposition, place ice packs and adjust patient and patient refused all help.
[2016-08-09] MEDS: LATANOPROST 2.5 ML DROPS (XALATAN) OP SCH (21:00)
--- NOTE | 2016-08-09 21:25 | NUR ---
LAMICTAL PO medication administer as ordered for seizure control & effective side rails remain padded / .
[2016-08-09] MEDS: cefTRIAXone 1 GM in D5W 50 ML IV SCH (23:18)
[2016-08-10] VITALS: BP_SYST 105
--- NOTE | 2016-08-10 00:13 | NUR ---
Patient is NPO this hour for possible surgery this AM DR Lawrence OJEDA .
--- NOTE | 2016-08-10 00:16 | NUR ---
CASTRO CATHETER for urine patent free flow of kristal yellow urine noted to BSDB .
--- NOTE | 2016-08-10 00:17 | NUR ---
ICE PACKS applied to right hip area & helpful for discomfort .
--- NOTE | 2016-08-10 03:58 | NUR ---
SEIZURE precaution implemented skin dry warm respirations regular also unlabored bed to low position no visual Sx activity noted / .
[2016-08-10 04:00] VITALS: BP_SYST 118
[2016-08-10] MEDS: MORPHINE 2 MG/ML INJ. SYRINGE IVP PRN (06:04)
--- NOTE | 2016-08-10 06:42 | NUR ---
MORPHINE SULFATE 3 MG IVP administer for general pain 5/10 and helpful , patient resting this hour and is NPO .
--- NOTE | 2016-08-10 07:50 | NUR ---
OPENING NOTE RECEIVED PATIENT FROM SPRINKLER HELPER NURSE, PATIENT IS CURRENTLY RESTING IN BED, PATIENT IS AWAKE, ASSESSMENT COMPLETE, PATIENT IS ON 2L NC SATING AT 96%, PATIENT HAS A IV IN LEFT HAND, SALINE LOCK, PATIENT HAS A CASTRO DRAINING YELLOW URINE, PER SPRINKLER HELPER NURSE, PATIENT'S PLAN IS TO WAIT ON DR. XIE FOR SCHEDULED SURGERY FOR RIGHT HIP FRACTURE, BED IN LOWEST POSITION, BED ALARM ON, SIDE PRECAUTIONS IN PLACE, FALL PRECAUTIONS IN PLACE, WILL CONTINUE TO MONITOR.
[2016-08-10 08:25] VITALS: BP_SYST 100
[2016-08-10] MEDS: BACLOFEN 10 MG TABLET PO SCH ×3 (09:00→20:22)
[2016-08-10] MEDS: GABAPENTIN 300 MG CAPSULE PO SCH ×3 (09:00→20:23)
--- NOTE | 2016-08-10 10:00 | NUR ---
RN ROUNDS PATIENT IS CURRENTLY RESTING IN BED, NO SIGNS OF DISTRESS NOTED, CHG BATH GIVEN WITH HELP OF DIGITAL CIRCUIT DESIGNER, NO OTHER NEEDS AT THIS TIME, WILL CONTINUE TO MONITOR PATIENT.
[2016-08-10] MEDS ORDERED: POLYMYXIN 500,000/BACIT.10,000 UNITS in NS IRR 1 L IR ONE (10:47)
--- NOTE | 2016-08-10 10:55 | NUR ---
PATIENT IS OFF OF UNIT FOR PROCEDURE, PATIENT IN STABLE CONDITION, VITAL SIGNS STABLE.
[2016-08-10] MEDS ORDERED: ONDANSETRON HCL 4 MG/2 ML VIAL IVP ONE (11:10)
[2016-08-10] MEDS ORDERED: LR 1,000 ML IV.SOLN IV ONE (11:10)
[2016-08-10] MEDS ORDERED: ROCURONIUM BROMIDE 10 MG/ML (ZEMURON) IV ONE (11:10)
[2016-08-10] MEDS ORDERED: MIDAZOLAM HCL 5 MG/5 ML VIAL IVP ONE (11:10)
[2016-08-10] MEDS ORDERED: BUPIVACAINE /EPINEPHRINE/PF 0.5% 30 ML VIAL INJ ONE (11:10)
[2016-08-10] MEDS ORDERED: fentaNYL CITRATE/PF 100 MCG/2 ML AMP IVP ONE (11:10)
[2016-08-10] MEDS ORDERED: CEFAZOLIN 1 GM IVPB PREMIX 50 ML IV ONE (11:10)
[2016-08-10] MEDS ORDERED: fentaNYL CITRATE 250 MCG/5 ML AMP IV ONE (11:10)
[2016-08-10] MEDS ORDERED: SEVOFLURANE 15 MIN GAS INH ONE (11:10)
[2016-08-10 12:00] VITALS: BP_SYST 135
[2016-08-10] MEDS ORDERED: LR 1,000 ML IV SCH (12:33)
[2016-08-10] MEDS ORDERED: HYDROmorphone 2 MG/ML VIAL IVP PRN (12:45)
[2016-08-10] MEDS ORDERED: METOCLOPRAMIDE HCL 10 MG/2 ML VIAL IVP PRN (12:45)
[2016-08-10] MEDS ORDERED: HYDROmorphone 1 MG INJ. 1 MG/ML AMPUL IVP PRN ×2 (12:45)
[2016-08-10] MEDS ORDERED: CEFAZOLIN 1 GM IVPB PREMIX 50 ML IV SCH (14:00)
--- NOTE | 2016-08-10 14:28 | NUR ---
PATIENT IS BACK ON UNIT PATIENT IS BACK ON UNIT FROM PROCEDURE, PATIENT IS IN STABLE CONDITION, VITALS STABLE, HR IS ELEVATED, EDUCATED PATIENT ON IMPORTANCE OF INCENTIVE SPIROMETER, EXPLAINED TO PATIENT HOW TO USE IT AND ASKED PATIENT TO DEMONSTRATE HOW TO USE IT, PATIENT WAS ABLE TO DEMONSTRATE TWICE GETTING AROUND 800ML, PATIENT WAS FALLING ASLEEP DURING DEMONSTRATION, WILL FOLLOW UP WITH TEACHING, VITALS SIGNS ARE BEING CHECKED Q15, NO OTHER NEEDS AT THIS TIME WILL CONTINUE TO MONITOR PATIENT, FALL PRECAUTIONS IN PLACE.
[2016-08-10] MEDS: DIVALPROEX SODIUM 125 MG CAP.(DEPAKOTE SPRINKLE) PO SCH ×2 (14:43→20:23)
[2016-08-10] MEDS: OMEPRAZOLE 20 MG CAPSULE.DR (PriLOSEC) PO SCH (14:43)
[2016-08-10] MEDS: DOCUSATE SODIUM 100 MG CAPSULE PO SCH ×2 (14:44→20:22)
[2016-08-10] MEDS: LamoTRIgine 25 MG TABLET PO SCH ×2 (14:44→20:59)
[2016-08-10] MEDS: SERTRALINE HCL 50 MG TABLET PO SCH (14:44)
[2016-08-10] MEDS: clonazePAM 0.5 MG TABLET PO SCH ×2 (14:45→20:23)
[2016-08-10] MEDS: FLUTICASONE PROPIONATE 50 mCg/SPRAY 16 GM NS SCH (14:48)
[2016-08-10] MEDS: cycloSPORINE 0.05%, 0.4 ML OPHTHALMIC EMULSION DROPERETTE OP SCH ×2 (14:48→20:19)
[2016-08-10] MEDS: TIMOLOL MALEATE 0.5% OPHTHALMIC DROPS 5 ML OP SCH ×2 (14:48→20:19)
--- NOTE | 2016-08-10 14:57 | NUR ---
MEDICATIONS PATIENT RECEIVED MORNING AND AFTERNOON MEDICATIONS, MEDICATIONS WERE NOT GIVEN AT 09:00 THIS MORNING BECAUSE PATIENT WAS NPO PER PROCEDURE, PATIENT TOLERATED WELL, NO OTHER NEEDS AT THIS TIME, WILL CONTINUE TO MONITOR PATIENT. FALL PRECAUTIONS IN PLACE.
[2016-08-10 16:00] VITALS: BP_SYST 103
--- NOTE | 2016-08-10 17:20 | NUR ---
RN ROUNDS PATIENT IS CURRENTLY RESTING IN BED, NO SIGNS OF DISTRESS NOTED, NO SIGNS OF DISCOMFORT NOTED, DR. CLARK MADE ROUNDS, NOTIFIED HIM THE ESTIMATED BLOOD LOSS FROM SURGERY, ALSO IS AWARE OF PATIENT'S BLOOD PRESSURES ON LOW SIDE, NO OTHER NEEDS AT THIS TIME, WILL CONTINUE TO MONITOR PATIENT, FALL PRECAUTIONS IN PLACE.
[2016-08-10] MEDS: CEFAZOLIN 1 GM IVPB PREMIX 50 ML IV SCH (18:11)
--- NOTE | 2016-08-10 18:40 | NUR ---
DR. ARTEAGA CALLED DR. ARTEAGA AND INFORMED HIM OF WHAT YANET LEROY ORDERED, DR. ARTEAGA ORDERED FOR PATIENT TO BE DISCHARGED SINCE SHE IS TO BE SCHEDULED OUTPATIENT FOR STENT PLACEMENT, WILL INFORM PATIENT. Addendum: 08/10/16 at 1844 by Asif Fregoso RN WRONG PATIENT.
--- NOTE | 2016-08-10 18:41 | NUR ---
CLOSING NOTE PATIENT IS CURRENTLY LYING IN BED, NO SIGNS OF DISTRESS NOTED, BREATHING IS EVEN AND UNLABORED, ALL NEEDS MET, WILL ENDORSE PATIENT TO MILK VENDOR, CALL ARGUETA LEFT IN PATIENT'S HAND, BED IN LOWEST POSITION, BED ALARM ON, SIDE RAILS UP, FALL PRECAUTIONS IN PLACE.
[2016-08-10 20:00] VITALS: BP_SYST 95
--- NOTE | 2016-08-10 20:10 | NUR ---
OPENING ASSESSMENT PATIENT ALERT/ORIENTED X2 CONTRACTED. MOVES TO COMMAND. DENIES PAIN @ THIS TIME. RT. THIGH DRESSING WITH SOME BLEEDING WHICH IS OUTLINED WITH TY FROM PREVIOUS SHIFT. NO NEW BLEEDING NOTED. ON O2 2L N/C. O2 SAT. IS 93%. NO SOB NOTED @ THIS TIME. LUNGS ARE DECREASED IN BASES BILATERALLY. HAS LR @ 100ML/HR VIA. 22G LT. HAND. SITE IS CLEAR. HAS F.CATH DRAINING CLEAR YELLOW URINE. CALL LIGHT WITHIN EASY ACCESS. INFORMED PATIENT TO CALL NURSE FOR ALL NEEDS AND NOT TO GET OUT OF BED.
[2016-08-10] MEDS: cefTRIAXone 1 GM in D5W 50 ML IV SCH (20:17)
[2016-08-10] MEDS ORDERED: LamoTRIgine 100 MG TABLET ONE (20:56)
[2016-08-10] MEDS: LATANOPROST 2.5 ML DROPS (XALATAN) OP SCH (21:00)
--- NOTE | 2016-08-10 23:00 | NUR ---
initial nursing notes: Patient awake in bed. Patient has IV access on the left hand. Reoriented patient as needed.
[2016-08-11 00:54] VITALS: BP_SYST 87
--- NOTE | 2016-08-11 01:00 | NUR ---
nursing rounds: Patient asleep in bed. Patient has no shortness of breath.
[2016-08-11] MEDS: CEFAZOLIN 1 GM IVPB PREMIX 50 ML IV SCH (02:15)
--- NOTE | 2016-08-11 03:00 | NUR ---
nursing rounds: Patient sleeping in bed. Patient's breathing pattern is regular and unlabored.
[2016-08-11 04:18] VITALS: BP_SYST 90
--- NOTE | 2016-08-11 05:00 | NUR ---
nursing rounds: Patient asleep in bed. Patient has no respiratory distress.
--- NOTE | 2016-08-11 06:30 | NUR ---
nursing rounds: Patient calmly resting in bed. Call light within patient's reach.
[2016-08-11 07:13] LABS: BASOPHILS % (AUTO) 0.2 % (0.0-2.0); EOSINOPHILS % (AUTO) 0.3 % (0.0-4.0); LYMPHOCYTES # (AUTO) 1.6 K/uL (1.0-5.5); LYMPHOCYTES % (AUTO) 12.2 % (20.5-51.5); MEAN CORPUSCULAR HEMOGLOBIN 28 pg (27-31); MEAN CORPUSCULAR HGB CONC 33 % (32-36); MEAN CORPUSCULAR VOLUME 85 fL (79.0-98.0); MONOCYTES # (AUTO) 1.2 K/uL (0.0-1.0); MONOCYTES % (AUTO) 8.8 % (1.7-9.3); NEUTROPHILS # (AUTO) 10.3 K/uL (1.8-7.7); NEUTROPHILS % (AUTO) 78.5 % (40.0-70.0); PLATELET COUNT (AUTO) 404 K/uL (130-430); RED BLOOD CELL COUNT(AUTO) 2.41 MIL/uL (4.2-6.2); RED CELL DISTRIBUTION WIDTH 12.9 % (9.0-15.0); WHITE BLOOD COUNT (AUTO) 13.1 K/uL (4.8-10.8)
[2016-08-11 07:34] LABS: CALCIUM 8.3 mg/dL (8.4-11.0); CREATININE 0.52 mg/dL (0.55-1.30); POTASSIUM 3.7 mmol/L (3.5-5.1)
[2016-08-11 07:49] LABS: HEMATOCRIT 20.5 % (36-48); HEMOGLOBIN 6.8 g/dL (12.0-16.0)
--- NOTE | 2016-08-11 07:50 | NUR ---
INITIAL NOTE PATIENT IS CURRENTLY RESTING IN BED, PATIENT IS AWAKE, ASSESSMENT COMPLETE, PATIENT IS ON 2L NC SATING AT 93%, PATIENT HAS A IV IN LEFT HAND, SALINE LOCK, FLUSHING WELL, PATIENT HAS A CASTRO DRAINING YELLOW URINE, BED IN LOWEST POSITION, BED ALARM ON, SIDE RAIL UPS, FALL PRECAUTIONS IN PLACE, WILL CONTINUE TO MONITOR PATIENT.
--- NOTE | 2016-08-11 08:07 | NUR ---
closing nursing notes: Patient is awake and alert. Patient is in no acute respiratory distress. No episodes of fall and no injuries throughout the manager night. Provided nursing report to incoming morning shift nurse, NEHA Neely, at patient's bedside.
[2016-08-11 08:20] VITALS: BP_SYST 90
[2016-08-11] MEDS: clonazePAM 0.5 MG TABLET PO SCH ×2 (09:00→21:03)
--- NOTE | 2016-08-11 10:00 | NUR ---
BT INITIATION: Consent signed per Conservator agreeing to administration of blood for patient. Blood has been type and crossmatched. Blood sent from blood bank. Information on unit of blood checked against patient wristband at bedside by two nurses. All information matches. Patient or responsible democrat informed of potential complications associated with blood transfusion. Informed of possible transfusion reaction symptoms. Aware of need to notify nurse at once of itching, shortness of breath, flushing, feeling of impending doom, or other symptoms not previously present. Vital signs taken within 5 minutes prior to initiation of transfusion. RN will remain with patient for first 15 minutes of transfusion at which time vital signs will be re-assessed.
--- NOTE | 2016-08-11 10:00 | NUR ---
INCENTIVE SPIROMETER REEDUCATED PATIENT ON IMPORTANCE OF INCENTIVE SPIROMETER, ASKED PATIENT TO DEMONSTRATE HOW TO USE IS, PATIENT WAS ABLE TO DEMONSTRATE, PATIENT WAS GETTING BETWEEN 750-1000ML BETWEEN ATTEMPTS, PATIENT WAS NOT ABLE TO CARRY OUT 10X, WILL CONTINUE TO USE IS WITH PATIENT
[2016-08-11] MEDS: BACLOFEN 10 MG TABLET PO SCH ×3 (10:08→21:02)
[2016-08-11] MEDS: DIVALPROEX SODIUM 125 MG CAP.(DEPAKOTE SPRINKLE) PO SCH ×2 (10:08→21:02)
[2016-08-11] MEDS: DOCUSATE SODIUM 100 MG CAPSULE PO SCH ×2 (10:09→21:02)
[2016-08-11] MEDS: SERTRALINE HCL 50 MG TABLET PO SCH (10:09)
[2016-08-11] MEDS: GABAPENTIN 300 MG CAPSULE PO SCH ×3 (10:09→21:02)
[2016-08-11] MEDS: OMEPRAZOLE 20 MG CAPSULE.DR (PriLOSEC) PO SCH (10:09)
[2016-08-11] MEDS: FLUTICASONE PROPIONATE 50 mCg/SPRAY 16 GM NS SCH (10:10)
[2016-08-11] MEDS: TIMOLOL MALEATE 0.5% OPHTHALMIC DROPS 5 ML OP SCH ×2 (10:10→21:25)
[2016-08-11] MEDS: cycloSPORINE 0.05%, 0.4 ML OPHTHALMIC EMULSION DROPERETTE OP SCH ×2 (10:10→21:03)
[2016-08-11] MEDS: LamoTRIgine 25 MG TABLET PO SCH ×2 (10:49→21:40)
--- NOTE | 2016-08-11 10:57 | NUR ---
Rn rounds patient is currently resting in bed, patient is tolerating blood transfusion well, will continue to monitor patient.
[2016-08-11 11:33] VITALS: BP_SYST 92
--- NOTE | 2016-08-11 13:00 | NUR ---
RN ROUNDS PATIENT IS FINISHED WITH FIRST UNIT OF BLOOD TRANSFUSION, PATIENT TOLERATED WELL, NO SIGNS OF REACTION NOTED, WILL CONTINUE TO MONITOR.
--- NOTE | 2016-08-11 13:55 | NUR ---
blood transfusion second unit started will continue to monitor patient,call hankins left next to patient, bed in lowest position, bed alarm on, fall precautions in place,
[2016-08-11 15:50] VITALS: BP_SYST 93
--- NOTE | 2016-08-11 16:40 | NUR ---
RN ROUNDS PATIENT IS FINISHED WITH BLOOD TRANSFUSION, PATIENT TOLERATED WELL, WILL CONTINUE TO MONITOR.
[2016-08-11] MEDS: OXYCODONE/ACETAMINOPHEN *10*mg/325 mg TABLET PO PRN (16:55)
--- NOTE | 2016-08-11 16:55 | NUR ---
DR. EDUARDO CLARK ORDERED FOR PATIENT TO BE ON TELE BECAUSE OF LOW BLOOD PRESSURES, ALSO STATED TO GET APPROVAL FOR PATIENT TO BE ON XARELTO 10MG DAILY BY DR. XIE SURGEON.
--- NOTE | 2016-08-11 18:11 | NUR ---
DR. CROCKETT CALLED DR. XIE, DR. CROCKETT WAS MILL STENCILER, STATED IT WAS OKAY TO START PATIENT ON XARELTO 10MG DAILY.
--- NOTE | 2016-08-11 18:44 | NUR ---
CLOSING NOTE PATIENT IS CURRENTLY RESTING IN BED WITH EYES CLOSED, NO SIGNS OF DISTRESS NOTED, PATIENT'S BREATHING IS EVEN AND UNLABORED, ALL NEEDS MET, WILL ENDORSE PATIENT TO CONTRACT ADMINISTRATION SPECIALIST NURSE, BED IN LOWEST POSITION, BED ALARM ON, SIDE RAILS UP, FALL PRECAUTIONS IN PLACE
[2016-08-11 19:30] VITALS: BP_SYST 96
--- NOTE | 2016-08-11 19:39 | NUR ---
Initial note A/O x 2, no SOB, no chest pain, denied pain. On 2 L O2 via NC, 98% with diminished breathing at lower lobes. Skin warm to touch, 2 IV at L hand and wrist. S/p R hip surgery, dressing intact and dry. +2 radial and pedal pulses palpated. Active bowel sounds. . F/C in place, clear kristal urine in the collecting bag. SCD in place. Patient is able to inhale incentive spirometer about 500-1000 ml. Call light within reach, bed at lowest position, seizure precaution applied, will continue to monitor patient.
[2016-08-11] MEDS: LATANOPROST 2.5 ML DROPS (XALATAN) OP SCH (21:00)
[2016-08-11] MEDS: cefTRIAXone 1 GM in D5W 50 ML IV SCH (21:03)
--- NOTE | 2016-08-11 22:30 | NUR ---
Rounds A/O x 2, no SOB, no chest pain, denied pain. On 2 L O2 via NC, 96% Skin warm to touch. Dressing at R hip/thigh. Repositioned patient to left. F/C in place, clear kristal urine in the collecting bag. SCD in place. Patient refused to use incentive spirometer due to tiredness/sleeping. Call light within reach, bed at lowest position, seizure precaution applied, will continue to monitor patient.
[2016-08-12 00:08] VITALS: BP_SYST 114
--- NOTE | 2016-08-12 00:20 | NUR ---
Rounds Sleeping in bed, no SOB, no chest pain, no griamcing. On 2 L O2 via NC. F/C in place, clear kristal urine in the collecting bag. SCD in place. Call light within reach, bed at lowest position, seizure precaution applied, will continue to monitor patient.
--- NOTE | 2016-08-12 02:38 | NUR ---
Rounds Sleeping in bed, no SOB, no chest pain, no grimacing. On 2 L O2 via NC. F/C in place. SCD in place. Call light within reach, bed at lowest position, seizure precaution applied, will continue to monitor patient.
[2016-08-12 04:09] VITALS: BP_SYST 106
--- NOTE | 2016-08-12 06:15 | NUR ---
Rounds Sleeping/resting in bed, no SOB, no chest pain, no grimacing. On 2 L O2 via NC. F/C in place. SCD in place. Seizure precaution applied. Call light within reach, bed at lowest position, will continue to monitor patient.
[2016-08-12 06:43] LABS: BASOPHILS % (AUTO) 0.2 % (0.0-2.0); EOSINOPHILS # (AUTO) 0.3 K/uL (0.0-0.4); EOSINOPHILS % (AUTO) 2.4 % (0.0-4.0); HEMATOCRIT 26.8 % (36-48); LYMPHOCYTES # (AUTO) 2.8 K/uL (1.0-5.5); LYMPHOCYTES % (AUTO) 23.5 % (20.5-51.5); MEAN CORPUSCULAR HEMOGLOBIN 29 pg (27-31); MEAN CORPUSCULAR HGB CONC 34 % (32-36); MEAN CORPUSCULAR VOLUME 86 fL (79.0-98.0); MONOCYTES # (AUTO) 1.2 K/uL (0.0-1.0); MONOCYTES % (AUTO) 10.2 % (1.7-9.3); NEUTROPHILS # (AUTO) 7.6 K/uL (1.8-7.7); NEUTROPHILS % (AUTO) 63.7 % (40.0-70.0); PLATELET COUNT (AUTO) 354 K/uL (130-430); RED CELL DISTRIBUTION WIDTH 13.1 % (9.0-15.0); WHITE BLOOD COUNT (AUTO) 11.9 K/uL (4.8-10.8)
--- NOTE | 2016-08-12 07:30 | NUR ---
CASTRO CATHETER IN PLACE, DRAINING WELL VIA GRAVITY
--- NOTE | 2016-08-12 07:48 | NUR ---
Closing note Awake in bed, no SOB, no chest pain, denied pain. On 2 L O2 via NC. F/C in place. SCD in place. Seizure precaution applied. Call light within reach, bed at lowest position, report given incoming nurse.
[2016-08-12] MEDS: LamoTRIgine 25 MG TABLET PO SCH ×3 (09:00→22:20)
--- NOTE | 2016-08-12 10:00 | NUR ---
ROUNDS PT STABLE...NO CHANGES...WILL CONT TO MONITOR
[2016-08-12] MEDS: DIVALPROEX SODIUM 125 MG CAP.(DEPAKOTE SPRINKLE) PO SCH ×2 (10:13→20:30)
[2016-08-12] MEDS: SERTRALINE HCL 50 MG TABLET PO SCH (10:14)
[2016-08-12] MEDS: RIVAROXABAN 10 MG TABLET PO SCH (10:14)
[2016-08-12] MEDS: BACLOFEN 10 MG TABLET PO SCH ×3 (10:14→20:29)
[2016-08-12] MEDS: clonazePAM 0.5 MG TABLET PO SCH ×2 (10:14→20:29)
[2016-08-12] MEDS: DOCUSATE SODIUM 100 MG CAPSULE PO SCH ×2 (10:14→20:29)
[2016-08-12] MEDS: OMEPRAZOLE 20 MG CAPSULE.DR (PriLOSEC) PO SCH (10:14)
[2016-08-12] MEDS: FLUTICASONE PROPIONATE 50 mCg/SPRAY 16 GM NS SCH (10:15)
[2016-08-12] MEDS: GABAPENTIN 300 MG CAPSULE PO SCH ×3 (10:15→20:29)
[2016-08-12] MEDS: TIMOLOL MALEATE 0.5% OPHTHALMIC DROPS 5 ML OP SCH ×2 (10:15→21:46)
[2016-08-12] MEDS: cycloSPORINE 0.05%, 0.4 ML OPHTHALMIC EMULSION DROPERETTE OP SCH ×2 (10:15→20:29)
--- NOTE | 2016-08-12 10:26 | NUR ---
PHYSICAL THERAPY AT BEDSIDE
[2016-08-12] MEDS: OXYCODONE/ACETAMINOPHEN *10*mg/325 mg TABLET PO PRN ×2 (11:35→21:49)
--- NOTE | 2016-08-12 11:45 | NUR ---
LATE ENTRY FOR 724, DUE TO PT CARE AM ROUNDS PT A/O x3, PT HAS DIFFICULTY SPEAKING AND EXPRESSING HERSELF DUE TO CVA. PT HAS RT SIDED DEFICIT. DRESSING TO RIGHT HIP C/D/I. 2L OXYGEN VIA N/C IN PLACE..HL TO LW AND LH FLUSH WELL..SEIZURE AND FALL PRECAUTION IN PLACE...PT DENIES PAIN AT THIS TIME...CALL LIGHT/PHONE W/IN REACH...PT NEAR NURSES STATION...WILL CONT TO MONITOR
--- NOTE | 2016-08-12 11:50 | NUR ---
6/10 PAIN TO RIGHT HIP..P.O. PAIN MEDICATION GIVEN
--- NOTE | 2016-08-12 11:58 | NUR ---
INCENTIVE SPIROMETER PT UNCOOPERATIVE WITH THE I/S..ASKED PT TO DEMONSTRATE USE OF I/S PT REACHED <500ml, WHEN ASKED TO REPEAT, PT DID NOTHING, JUST LEFT I/S TUBE IN HER MOUTH AND CLOSED HER EYES...
--- NOTE | 2016-08-12 12:30 | NUR ---
PHYSICAL THERAPY CO-SIGN The Physical Therapy Progress Notes documented by Bunk House Worker have been reviewed. Reviewed/Co-Signed by: Freya Ray, PT Documentation Done by: Jony Alexandra PTA I concur with the documentation of this ALARM SIGNALER. Plan: continue PT as per plan of care if she remains in this hospital. Addendum: 08/12/16 at 1241 by Freya Ray PT Amended: Links added.
--- NOTE | 2016-08-12 12:46 | NUR ---
PT YELLING..WHEN ASKED IF SHE IS IN PAIN, SHE SAYS "YES" WHEN ASKED "WHERE" PT IS UNABLE TO ANSWER. NURSE ASKS "IF HER HIP HURTS?" PT ANSWERS "NO" "DOES YOUR CASTRO HURT?" ..."NO" "ARE YOU IN PAIN RIGHT NOW, BECAUSE YOU ARE HAVING A BM?"..."NO" PT JUST BEGINS TO YELL
--- NOTE | 2016-08-12 12:50 | NUR ---
CASTRO CATHETER REPOSITIONED AND FLUSHED UPON DEFLATING BALLOON FOR REPOSITIONING CATHETER TIP, BRIGHT RED BLOOD WAS NOTED. PT C/O PAIN WHEN BALLOON WAS REINFLATED WITH 10ML OF NS...WILL USE BLADDER SCAN TO CHECK FOR RESIDUAL
--- NOTE | 2016-08-12 13:00 | NUR ---
PT HAD A FORMED, FIRM BM THE SIZE OF A SOFTBALL
[2016-08-12 13:16] VITALS: BP_SYST 86
--- NOTE | 2016-08-12 14:11 | NUR ---
PT C/O CASTRO CATHETER PAIN...DR ANNE-MARIE SCHREIBER FOR POSSIBLE DC F/C ORDER
--- NOTE | 2016-08-12 15:01 | NUR ---
SLEEPING PT SLEEPING COMFORTABLY AT THIS TIME...RESPIRATIONS EVEN/UNLABORED...WILL CONT TO MONITOR
--- NOTE | 2016-08-12 16:05 | NUR ---
DISCHARGE PLANNING Faxed referral to [facility] for possible discharge back to SNF. Spoke with Ana in admitting patient assigned to room 102 RN to report [phone], bed available anytime. CM made aware. Pending discharge order. Any ambulance can be arranged. Placed transportation packet in nurses statin. Pending discharge order.
--- NOTE | 2016-08-12 16:30 | NUR ---
PT PULLED BOTH IVs OUT OF RIGHT HAND AND WRIST NEW IV WILL BE RE-INSERTED
--- NOTE | 2016-08-12 16:42 | NUR ---
IV RE-INSERTION: Restarted on LFA 22g. Successful after FIRST attempt. Will observe for any signs of infiltration.
[2016-08-12 16:47] VITALS: BP_SYST 111
[2016-08-12 18:23] LABS: BILIRUBIN,URINE NEGATIVE (NEGATIVE); BLOOD, URINE 3+ (NEGATIVE); CLARITY/URINE CLOUDY (CLEAR); COLOR,URINE RED (YELLOW); GLUCOSE,URINE NEGATIVE (NEGATIVE); KETONES,URINE 1+ (NEGATIVE); LEUKOCYTE ESTERASE ,URINE 1+ (NEGATIVE); NITRITE, URINE POSITIVE (NEGATIVE); PH,URINE 6.5 (5.0-8.0); PROTEIN URINE 3+ (NEGATIVE)
[2016-08-12 18:59] LABS: BACTERIA,URINE FEW /HPF (None Seen); MUCUS,URINE 1+ /LPF (None Seen); RBC,URINE >100 /HPF (0-3); YEAST,URINE Moderate /HPF (None Seen)
--- NOTE | 2016-08-12 19:00 | NUR ---
NEW IV RE-INSERTED..IV TO LFA INFILTRATED IV RE-INSERTED IN RAC 20g...WILL MONITOR FOR SIGNS/SYMPTOMS OF PAIN OR INFILTRATION
[2016-08-12] MEDS: NACL 0.9% 1,000 ML IV SCH (19:02)
[2016-08-12 20:37] VITALS: BP_SYST 107
--- NOTE | 2016-08-12 20:38 | NUR ---
Initial note A/O x 2, no SOB, no chest pain, denied pain, continued 2 L O2 via NC. Clear lung sounds and active bowel sounds. R sided paralyses. R arm contracted. SCD on, seizure precaution applied. F/C in place, kristal urine noted. Skin warm to touch, IV at R AC patent, IVF ongoing. S/p ORIF at R hip, dressing intact. Call light within reach, bed at lowest position, bed alarm on, will continue to monitor patient.
[2016-08-12] MEDS: LATANOPROST 2.5 ML DROPS (XALATAN) OP SCH (21:00)
--- NOTE | 2016-08-12 22:11 | NUR ---
Rounds A/O x 2, no SOB, no chest pain, pain decreased after Percocet given. Continued 2 L O2 via NC. SCD on, seizure precaution applied. F/C in place. IVF ongoing. S/p ORIF at R hip, dressing intact. Patient is able to inhale 500-1000 ml incentive spirometer. Call light within reach, bed at lowest position, bed alarm on, will continue to monitor patient.
[2016-08-12] MEDS ORDERED: LamoTRIgine 100 MG TABLET ONE (22:20)
--- NOTE | 2016-08-12 22:21 | NUR ---
Give Lamotrigine 100 mg x 1.5 tab PO now. Med was not available earlier.
[2016-08-12 23:44] VITALS: BP_SYST 100
--- NOTE | 2016-08-13 00:15 | NUR ---
Rounds Resting in bed, watching TV. No SOB, no chest pain, denied pain. Continued 2 L O2 via NC. SCD on, seizure precaution applied. F/C in place. About 100 ml kristal urine in the bag. IVF ongoing. S/p ORIF at R hip, dressing intact. Patient refused to inhale via incentive spirometer. Call light within reach, bed at lowest position, bed alarm on, will continue to monitor patient.
--- NOTE | 2016-08-13 02:12 | NUR ---
Rounds Sleeping in bed. No SOB, no chest pain, no grimacing. Continued 2 L O2 via NC. SCD in place, seizure precaution applied. F/C in place. IVF ongoing. Call light within reach, bed at lowest position, bed alarm on, will continue to monitor patient.
--- NOTE | 2016-08-13 04:18 | NUR ---
Rounds and IV reinsertion Awake in bed. Yelling, no SOB, no chest pain, denied pain, patient wanted SN to fix her gown and blanket. Continued 2 L O2 via NC. SCD in place, seizure precaution applied. F/C in place. Noted IV at R AC infiltrated. Started new IV x 2 attempts at L hand. Good blood return, 1 cm catheter out of existing site. DC old IV, IV catheter intact. R arm swelling, elevated R arm with pillow. IVF ongoing. Call light within reach, bed at lowest position, bed alarm on, will continue to monitor patient. Addendum: 08/13/16 at 0451 by Francisco De Dios RN Re-instructed patient to use call light for help, not yelling.
[2016-08-13 05:10] VITALS: BP_SYST 100
--- NOTE | 2016-08-13 05:34 | NUR ---
Emptied 150 ml dark brown/red urine with some sediment noted.
[2016-08-13] MEDS: NACL 0.9% 1,000 ML IV SCH ×2 (06:31→21:06)
--- NOTE | 2016-08-13 06:45 | NUR ---
Closing note Sleeping in bed, arousable. No SOB, no chest pain, no grimacing. Continued 2 L O2 via NC. SCD in place, seizure precaution applied. F/C in place. IVF ongoing. Call light within reach, bed at lowest position, bed alarm on, will give report to incoming nurse regarding patient condition, monitoring urine output, Xarelto order, and calling Petros for how patient activities were there.
[2016-08-13 06:55] LABS: BASOPHILS % (AUTO) 0.3 % (0.0-2.0); EOSINOPHILS # (AUTO) 0.3 K/uL (0.0-0.4); LYMPHOCYTES # (AUTO) 2.3 K/uL (1.0-5.5); MONOCYTES # (AUTO) 0.7 K/uL (0.0-1.0); RED CELL DISTRIBUTION WIDTH 13.6 % (9.0-15.0)
[2016-08-13 06:59] LABS: CALCIUM 8.2 mg/dL (8.4-11.0); CREATININE 0.49 mg/dL (0.55-1.30); POTASSIUM 3.8 mmol/L (3.5-5.1)
[2016-08-13 07:05] LABS: EOSINOPHILS % (AUTO) 3.3 % (0.0-4.0); HEMATOCRIT 26.3 % (36-48); HEMOGLOBIN 8.5 g/dL (12.0-16.0); LYMPHOCYTES % (AUTO) 26.2 % (20.5-51.5); MEAN CORPUSCULAR HEMOGLOBIN 28 pg (27-31); MEAN CORPUSCULAR HGB CONC 33 % (32-36); MEAN CORPUSCULAR VOLUME 88 fL (79.0-98.0); MONOCYTES % (AUTO) 8.3 % (1.7-9.3); NEUTROPHILS # (AUTO) 5.4 K/uL (1.8-7.7); NEUTROPHILS % (AUTO) 61.9 % (40.0-70.0); PLATELET COUNT (AUTO) 410 K/uL (130-430); WHITE BLOOD COUNT (AUTO) 8.7 K/uL (4.8-10.8)
--- NOTE | 2016-08-13 08:00 | NUR ---
initial notes res pt asleep but arousable to stimuli. ivf infusing well on the l hand and wrapped with kerlix roll. no infiltration noted. dressing on the r hip dry and intact.no bleeding noted. no neuro defict noted.padded rails in place. no seizure activity noted. resp easy and unlabored. no acute distress noted. bed in low position and side rails up and locked. call light within reached but screams when needing something.
[2016-08-13] MEDS: GABAPENTIN 300 MG CAPSULE PO SCH ×3 (09:54→21:08)
[2016-08-13] MEDS: DOCUSATE SODIUM 100 MG CAPSULE PO SCH ×2 (09:54→21:05)
[2016-08-13] MEDS: clonazePAM 0.5 MG TABLET PO SCH ×2 (09:55→21:13)
[2016-08-13] MEDS: DIVALPROEX SODIUM 125 MG CAP.(DEPAKOTE SPRINKLE) PO SCH ×2 (09:55→21:07)
[2016-08-13] MEDS: BACLOFEN 10 MG TABLET PO SCH ×3 (09:55→21:07)
[2016-08-13] MEDS: SERTRALINE HCL 50 MG TABLET PO SCH (09:55)
[2016-08-13] MEDS: OMEPRAZOLE 20 MG CAPSULE.DR (PriLOSEC) PO SCH (09:56)
[2016-08-13] MEDS: cycloSPORINE 0.05%, 0.4 ML OPHTHALMIC EMULSION DROPERETTE OP SCH ×2 (09:59→21:05)
[2016-08-13] MEDS: TIMOLOL MALEATE 0.5% OPHTHALMIC DROPS 5 ML OP SCH ×2 (09:59→21:05)
[2016-08-13] MEDS: FLUTICASONE PROPIONATE 50 mCg/SPRAY 16 GM NS SCH (10:00)
[2016-08-13] MEDS: RIVAROXABAN 10 MG TABLET PO SCH (10:01)
--- NOTE | 2016-08-13 11:00 | NUR ---
rounds seen by dr franco and with orders. resting quietly.
--- NOTE | 2016-08-13 12:00 | NUR ---
DC PLANNING: Breanna SOLOMON made aware that the pt. is accepted at [facility] and has bed available now. Requesting Breanna to call dr. Gracia for discharge order and transfer if pt. is stable.
[2016-08-13 12:34] VITALS: BP_SYST 100
[2016-08-13] MEDS: MORPHINE 2 MG/ML INJ. SYRINGE IVP PRN ×2 (13:02→18:10)
--- NOTE | 2016-08-13 13:22 | NUR ---
rounds dr franco was called re disch to snf. awaiting to call back.
--- NOTE | 2016-08-13 14:00 | NUR ---
rounds dr franco stated not ready to go back to snf yet. no acute distress. no sob noted. friend at the bedside.
[2016-08-13 16:13] VITALS: BP_SYST 90
[2016-08-13] MEDS: cefTRIAXone 1 GM in D5W 50 ML IV SCH (16:30)
--- NOTE | 2016-08-13 16:30 | NUR ---
rounds pt went asleep when friend left . no acute distress. resting comfortably.
--- NOTE | 2016-08-13 18:34 | NUR ---
closing notes pt was medicated by charge nurse tee for pain. no acute distress. padded rails in place. no acute distress noted. bed in low position. will endorsed to next shift to encourage fluid intake q 1 hour. turned repositioned for comfort. stable, needs attended.
--- NOTE | 2016-08-13 19:55 | NUR ---
PM SHIFT ASSESSMENT RECEIVED PATIENT IN BED, AOX2. VITAL SIGNS STABLE. NO SOB NOTED, ON 02 2L NC. IV LINE TO LEFT HAND INTACT AND PATENT, IVF OF NS @ 80 ML/HR INFUSING. RIGHT HIP WITH DRESSING CDI. PATIENT HAS CASTRO CATHETER, LEAKING ON DISPOSABLE PADS. REINFLATED CASTRO BALLOON WITH 5ML OF SALINE. INCONTINENCE CARE PROVIDED. PATIENT REPOSITIONED AND TURNED WITH PILLOW SUPPORT, SAFETY MEASURES IN PLACE. ORIENTED TO USE CALL LIGHT FOR NURSE ASSISTANCE, CALL LIGHT WITHIN REACH, WILL CLOSELY MONITOR. Addendum: 08/13/16 at 2154 by Vivian Hopson RN SEIZURE PADS IN PLACE, BILATERAL SCDS TO LOWER LEGS IN PLACE.
[2016-08-13 20:00] VITALS: BP_SYST 98
[2016-08-13] MEDS: LATANOPROST 2.5 ML DROPS (XALATAN) OP SCH (21:00)
[2016-08-13] MEDS: LamoTRIgine 25 MG TABLET PO SCH (21:00)
--- NOTE | 2016-08-13 21:48 | NUR ---
RN ROUNDS PATIENT'S DUE MEDICATIONS ADMINISTERED. ASPIRATION PRECAUTIONS MAINTAINED. REPOSITIONED FOR COMFORT.
--- NOTE | 2016-08-13 22:36 | NUR ---
RN ROUNDS PATIENT ASLEEP, RESPIRATIONS EVEN AND UNLABORED, REMAINS ON 02 2L NC. REPOSITIONED WITH PILLOW SUPPORT. IVF INFUSING. CALL LIGHT WITHIN REACH, WILL CONTINUE TO MONITOR.
[2016-08-13 22:43] VITALS: BP_SYST 95
--- NOTE | 2016-08-14 00:34 | NUR ---
RN ROUNDS PATIENT CONTINUES TO SLEEP, RESPIRATIONS EVEN AND UNLABORED, REMAINS ON 02 2L NC. VITALS STABLE. REPOSITIONED WITH PILLOW SUPPORT. WILL CONTINUE TO MONITOR.
--- NOTE | 2016-08-14 02:50 | NUR ---
RN ROUNDS PATIENT CONTINUES TO SLEEP, RESPIRATIONS EVEN AND UNLABORED, IVF INFUSING, CASTRO CATHETER SECURED AND DRAINING YELLOW URINE TO GRAVITY. REPOSITIONED WITH PILLOW SUPPORT. WILL CONTINUE TO MONITOR.
[2016-08-14 03:52] VITALS: BP_SYST 106
--- NOTE | 2016-08-14 04:43 | NUR ---
RN ROUNDS PATIENT CONTINUES TO SLEEP, RESPIRATIONS EVEN AND UNLABORED, VITAL SIGNS STABLE. REPOSITIONED WITH PILLOW SUPPORT. WILL CONTINUE TO MONITOR.
[2016-08-14] MEDS: MORPHINE 2 MG/ML INJ. SYRINGE IVP PRN (05:14)
--- NOTE | 2016-08-14 05:20 | NUR ---
PAIN PATIENT MOANING AND HAVING PAIN TO RIGHT HIP, MEDICATED WITH MORPHINE FOR PAIN MANAGEMENT. REPOSITIONED FOR COMFORT, VITAL SIGNS STABLE. WILL REASSESS PATIENT SHORTLY.
[2016-08-14] MEDS: NACL 0.9% 1,000 ML IV SCH (06:29)
--- NOTE | 2016-08-14 06:41 | NUR ---
CLOSING NOTE PATIENT CONTINUES TO SLEEP, RESPIRATIONS EVEN AND UNLABORED, IV LINE INTACT AND PATENT, IVF INFUSING, DRESSING TO RIGHT HIP CDI, CASTRO CATHETER SECURED AND TO GRAVITY, DRAINING YELLOW URINE. REPOSITIONED WITH PILLOW SUPPORT. BILATERAL SCDS IN PLACE, SAFETY MEASURES MAINTAINED, HOURLY ROUNDS MADE, WILL CONTINUE TO MONITOR UNTIL REPORT GIVEN TO AM NURSE.
--- NOTE | 2016-08-14 08:00 | NUR ---
AM Initial Note Pt aaox3 with no complaints of pain or discomfort at this time. No sob, difficulty breathing or distress noted. cotton tier in place. O2 via nasal canula @ 2L in place. Incision to right hip covered with dressing. Dressing appears dry, clean and intact. No drainage noted. Right side with paralysis and contracted right upper arm. Bilateral scd in place. King catheter in place with kristal colored urine noted to bag. Fall and safety precautions enforced with ID band on, bed alarm armed, 3 rails up and close to nurse's station. Repositioned and kept comfortable. Encouraged to call for assistance. Call light within reach. Will monitor.
[2016-08-14 08:21] VITALS: BP_SYST 99
[2016-08-14] MEDS: SERTRALINE HCL 50 MG TABLET PO SCH (09:59)
[2016-08-14] MEDS: LamoTRIgine 25 MG TABLET PO SCH (09:59)
[2016-08-14] MEDS: GABAPENTIN 300 MG CAPSULE PO SCH ×2 (09:59→15:27)
[2016-08-14] MEDS: DOCUSATE SODIUM 100 MG CAPSULE PO SCH (09:59)
[2016-08-14] MEDS: DIVALPROEX SODIUM 125 MG CAP.(DEPAKOTE SPRINKLE) PO SCH (10:00)
[2016-08-14] MEDS: OMEPRAZOLE 20 MG CAPSULE.DR (PriLOSEC) PO SCH (10:00)
[2016-08-14] MEDS: RIVAROXABAN 10 MG TABLET PO SCH (10:00)
[2016-08-14] MEDS: BACLOFEN 10 MG TABLET PO SCH ×2 (10:00→15:27)
[2016-08-14] MEDS: clonazePAM 0.5 MG TABLET PO SCH (10:00)
--- NOTE | 2016-08-14 10:00 | NUR ---
Pain Pt complaints of right hip and leg pain 5/10. Medicated with Percoset 1 tablet. Fall and safety precautions enforced. Encouraged to call for assistance. Will monitor.
[2016-08-14] MEDS: cycloSPORINE 0.05%, 0.4 ML OPHTHALMIC EMULSION DROPERETTE OP SCH (10:01)
[2016-08-14] MEDS: TIMOLOL MALEATE 0.5% OPHTHALMIC DROPS 5 ML OP SCH (10:01)
[2016-08-14] MEDS: FLUTICASONE PROPIONATE 50 mCg/SPRAY 16 GM NS SCH (10:01)
[2016-08-14] MEDS: OXYCODONE/ACETAMINOPHEN *10*mg/325 mg TABLET PO PRN ×2 (10:04→15:33)
--- NOTE | 2016-08-14 10:30 | NUR ---
Dr. Basil OJEDA doing rounds. Plan of care discussed.
[2016-08-14 11:30] VITALS: BP_SYST 108
--- NOTE | 2016-08-14 12:00 | NUR ---
Physical Therapy Pt having physical therapy treatment. Weakness and instability noted. No complaints of pain or discomfort. No distress noted. Returned patient back to bed. Kept comfortable. Will monitor.
--- NOTE | 2016-08-14 12:24 | NUR ---
D/C King D/C King catheter. 350 cc kristal colored urine noted to bag. No complaints of discomfort or burning during d/c.
--- NOTE | 2016-08-14 13:03 | NUR ---
DISCHARGE PLANNING DC order back to SNF. Spoke with sarah in admitting confirmed patient assigned to room 102 RN to report [phone] bed available anytime. NEHA Chanel made aware. Called patient conservator Sunny Khan [phone] left voice message requesting return call back. Called [facility] [phone] left voice message Cyn in [address] requesting return call back. Called [facility] [phone] spoke with Erica shaver [facility] transport [employer] 4pm. Updated transportation packet in nurses station. Addendum: 08/14/16 at 1546 by Megan ERNST Spoke with [place] conservator who confirmed agreeable with patient discharge back to [facility] today.
[2016-08-14] MEDS: cefTRIAXone 1 GM in D5W 50 ML IV SCH (14:02)
--- NOTE | 2016-08-14 14:15 | NUR ---
Rounds Pt asleep. No signs of facial grimacing for pain or discomfort. No distress noted. Repositioned and kept comfortable. Will monitor.
--- NOTE | 2016-08-14 14:57 | NUR ---
PHYSICAL THERAPY CO-SIGN The Physical Therapy Progress Notes documented by Cake Wringer have been reviewed. I CONCUR W/WIDE AREA NETWORK ADMINISTRATOR NOTE; TO ENCOURAGE Pt INCREASED PARTICIPATION IN TRANSFER ACTIVITY; CONT PER TX PLAN Reviewed/Co-Signed by: Safia Felipe PT Documentation Done by: NBA SALAZAR WIDE AREA NETWORK ADMINISTRATOR Addendum: 08/14/16 at 1459 by Safia Felipe PT Amended: Links added.
--- NOTE | 2016-08-14 15:20 | NUR ---
[facility] Called for report to [facility] @ and spoke with CEDRIC De Luna. Pt will be going to room 102.
[2016-08-14 15:35] VITALS: BP_SYST 105
--- NOTE | 2016-08-14 15:40 | NUR ---
Pain Pt complaints of right hip and leg pain 06/22. Medicated with Percoset 1tablet. Will monitor.
[2016-08-14 15:43] VITALS: BP_SYST 105
--- NOTE | 2016-08-14 16:20 | NUR ---
Discharge Discharge patient with [facility] ambulance. Transitional care instruction and packet given to EMT. D/C mimeograph operator. Vital signs stable. No complaints of pain. 0/10 pain scale. Pt leaving with IV to left hand saline locked. Pt left floor via stretcher to ambulance vehicle. No distress noted.
== END 2016-08-14 16:22 | DRG 480 ==
LOC: SED 04:05 → SMU 05:31 → STU 08-11 18:45
PROVIDERS: ADMIT Family Medicine; ATTEND Family Medicine
PROC: 0QS604Z Reposition Right Upper Femur with Internal Fixation Device, Open Approach (ICD-10-PCS; principal; 2016-08-10 11:00)
PROC: 30233N1 Transfusion of Nonautologous Red Blood Cells into Peripheral Vein, Percutaneous Approach (ICD-10-PCS; 2016-08-11)
DX: M97.01XA Periprosthetic fracture around internal prosthetic right hip joint, initial encounter (principal); G93.49 Other encephalopathy; N39.0 Urinary tract infection, site not specified; I69.351 Hemiplegia and hemiparesis following cerebral infarction affecting right dominant side; D62 Acute posthemorrhagic anemia; H40.9 Unspecified glaucoma; G89.4 Chronic pain syndrome; G40.909 Epilepsy, unspecified, not intractable, without status epilepticus; Z96.649 Presence of unspecified artificial hip joint; F41.9 Anxiety disorder, unspecified; R53.81 Other malaise; W18.39XA Other fall on same level, initial encounter; Z90.49 Acquired absence of other specified parts of digestive tract; Z79.899 Other long term (current) drug therapy; Z82.49 Family history of ischemic heart disease and other diseases of the circulatory system; Y93.89 Activity, other specified; Y92.89 Other specified places as the place of occurrence of the external cause; Y99.8 Other external cause status
CPT/HCPCS: 36415; 71010; 72170-TC; 73552; 73590-TC; 80048; 80053; 81000-TC; 82150-TC; 83690-TC; 85025; 85610-TC; 85730-TC; 86886; 86900; 86901; 86920; 87081; 87086; 93005; 96361; 96374; 96375; 97110-GP; 97530-GP; 99285; C1713; J0690; J0696; J1170; J1650; J2250; J2270; J2405; J2550; J3010; J3490; J7030; J7040; J7050; J7060; J7120; P9021

== ENCOUNTER 2019-07-25 15:24 | Emergency (ER) | payer OTHER ==
[~2019-07-25] VITALS: Ht 165.1 cm; Wt 68.0 kg
[2019-07-25 15:24] VITALS: BP_SYST 133
[~2019-07-25 15:24] MED LIST changes: +ALPR0.25 PO; -ALPR0.2583 PO; +CLON0.5T12 PO; -CLON0.5T4 PO; +DEPS125 PO; -DIVA125C4 PO; -LATA2.5D6 OP; -OMEP20CA10 PO; +OMEP20CA11 PO; -POTA20LI PO; +POTA20LI5 PO; +TIMO5DRO15 OP; -TIMO5DRO4 OP; +XALEYE OP
[2019-07-25] MEDS ORDERED: PANTOPRAZOLE SODIUM 40 MG/VIAL (PROTONIX) IVP ONE (15:45)
[2019-07-25] MEDS ORDERED: ONDANSETRON HCL 4 MG/2 ML VIAL IVP ONE (15:45)
[2019-07-25] MEDS ORDERED: LATA7.5D EACH EYE (15:54)
[2019-07-25] MEDS ORDERED: BACL10TA PO (15:54)
[2019-07-25] MEDS ORDERED: LACT1CAP14 PO (15:54)
[2019-07-25] MEDS ORDERED: GABA600T PO (15:54)
[2019-07-25] MEDS ORDERED: FER300L PO (15:54)
[2019-07-25] MEDS ORDERED: LORA10TA64 PO (15:54)
[2019-07-25] MEDS ORDERED: [UNRECOGNIZED DRUG - CODE] PO (15:54)
[2019-07-25] MEDS ORDERED: ALEN70TA27 PO (15:54)
[2019-07-25] MEDS ORDERED: DULR10 RC (15:54)
[2019-07-25] MEDS ORDERED: CARB15DR93 EACH EAR (15:54)
[2019-07-25] MEDS ORDERED: KLO.5 PO (15:54)
[2019-07-25] MEDS ORDERED: IBUP-1969 PO (15:54)
[2019-07-25] MEDS ORDERED: DIVA125T2 PO (15:54)
[2019-07-25] MEDS ORDERED: FLUT16SP24 (15:54)
[2019-07-25] MEDS ORDERED: IPRA3AMP9 NEB (15:54)
[2019-07-25] MEDS ORDERED: POLY15DR31 EACH EYE (15:54)
[2019-07-25] MEDS ORDERED: VITA1CAP PO (16:07)
[2019-07-25] MEDS ORDERED: RIVA10TA PO (16:07)
[2019-07-25] MEDS ORDERED: ALPR0.25 PO (16:07)
[2019-07-25] MEDS ORDERED: PERC10 PO (16:07)
[2019-07-25] MEDS ORDERED: TIMO5DRO16 EACH EYE (16:07)
[2019-07-25] MEDS ORDERED: POTA20LI25 PO (16:07)
[2019-07-25] MEDS ORDERED: WITC1MED28 TP (16:07)
[2019-07-25] MEDS ORDERED: MOM PO (16:07)
[2019-07-25] MEDS ORDERED: PRO40 PO (16:07)
[2019-07-25] MEDS ORDERED: CALC-740 PO ×2 (16:07)
[2019-07-25] MEDS ORDERED: DOCU100T10 PO (16:07)
[2019-07-25] MEDS ORDERED: MIRT30TA7 PO (16:07)
[2019-07-25] MEDS ORDERED: UTI-STAT PO (16:07)
[2019-07-25] MEDS ORDERED: [UNRECOGNIZED DRUG - CODE] RC (16:07)
[2019-07-25] MEDS ORDERED: ANTACID PO (16:07)
[2019-07-25] MEDS ORDERED: IOHEXOL 100 ML IV ONE (16:16)
[2019-07-25 17:57] LABS: BASOPHILS # (AUTO) 0.1 K/uL (0.0-0.2); BASOPHILS % (AUTO) 0.8 % (0.0-2.0); EOSINOPHILS # (AUTO) 0.1 K/uL (0.0-0.4); EOSINOPHILS % (AUTO) 1.4 % (0.0-4.0); HEMATOCRIT 34.1 % (36-48); HEMOGLOBIN 11.2 g/dL (12.0-16.0); LYMPHOCYTES # (AUTO) 1.9 K/uL (1.0-5.5); LYMPHOCYTES % (AUTO) 26.8 % (20.5-51.5); MEAN CORPUSCULAR HEMOGLOBIN 29 pg (27-31); MEAN CORPUSCULAR HGB CONC 33 % (32-36); MEAN CORPUSCULAR VOLUME 88 fL (79.0-98.0); MONOCYTES # (AUTO) 0.5 K/uL (0.0-1.0); MONOCYTES % (AUTO) 6.5 % (1.7-9.3); NEUTROPHILS # (AUTO) 4.7 K/uL (1.8-7.7); NEUTROPHILS % (AUTO) 64.5 % (40.0-70.0); PLATELET COUNT (AUTO) 336 K/uL (130-430); RED BLOOD CELL COUNT(AUTO) 3.89 MIL/uL (4.2-6.2); RED CELL DISTRIBUTION WIDTH 16.1 % (9.0-15.0); WHITE BLOOD COUNT (AUTO) 7.3 K/uL (4.8-10.8)
[2019-07-25 18:07] LABS: ANION GAP 4 (5-15); CALCIUM 9.3 mg/dL (8.4-11.0); CHLORIDE 102 mmol/L (98-107); CREATININE 0.69 mg/dL (0.55-1.30); GLUCOSE 114 mg/dL (70-99); POTASSIUM 4.4 mmol/L (3.5-5.1); SODIUM SERUM 139 mmol/L (136-145); UREA NITROGEN, BLOOD 20 mg/dL (8-21)
[2019-07-25 18:11] LABS: GFR AFRICAN AMERICAN 109 mL/min (>90)
[2019-07-25 18:14] LABS: ALANINE AMINOTRANSFERASE 17 U/L (12-78); ALBUMIN 2.8 g/dL (3.4-4.8); ASPARTATE AMINOTRANSFERASE 16 U/L (10-37); LIPASE 68 U/L (73-393); TOTAL BILIRUBIN 0.2 mg/dL (0.0-1.0)
[2019-07-25 19:35] LABS: BILIRUBIN,URINE NEGATIVE (NEGATIVE); BLOOD, URINE NEGATIVE (NEGATIVE); CLARITY/URINE CLEAR (CLEAR); COLOR,URINE YELLOW (YELLOW); GLUCOSE,URINE NEGATIVE (NEGATIVE); KETONES,URINE TRACE (NEGATIVE); LEUKOCYTE ESTERASE ,URINE NEGATIVE (NEGATIVE); NITRITE, URINE NEGATIVE (NEGATIVE); PROTEIN URINE NEGATIVE (NEGATIVE); UROBILINOGEN,URINE 0.2 (0.2-1.0)
[2019-07-25 21:26] VITALS: BP_SYST 104
== END 2019-07-25 21:26 | disposition home or self-care (01) ==
LOC: SED 15:24
DX: R11.2 Nausea with vomiting, unspecified (principal); F41.9 Anxiety disorder, unspecified; Z86.73 Personal history of transient ischemic attack (TIA), and cerebral infarction without residual deficits; Z79.899 Other long term (current) drug therapy; Z88.0 Allergy status to penicillin
CPT/HCPCS: 36415; 71045; 80053; 81003; 83690-TC; 84484; 85025; 86886; 86900; 86901; 93005; 96374; 96375; 99285; C9113; J2405; Q9967

== ENCOUNTER 2020-10-15 17:39 | Inpatient (IN) | payer OTHER, SELFPAY ==
[~2020-10-15] VITALS: Ht 167.6 cm; Wt 90.7 kg
[~2020-10-15 17:39] MED LIST changes: -ACET-2165 PO; -ALBU2.5V7 INH; +ALEN70TA27 PO; +ANTACID PO; +CALC-740 PO; +CARB15DR93 EACH EAR; -CLON0.5T12 PO; -DEPS125 PO; -DEXT1CAP3 PO; +DIVA125T2 PO; -DOCU-144 PO; +DOCU100T10 PO; +DULR10 RC; +FER300L PO; -FLUT16SP16 NS; +FLUT16SP24; -GABA-531 PO; +GABA600T PO; +IBUP-1969 PO; +IPRA3AMP9 NEB; +KLO.5 PO; -LACT10SO66 PO; +LACT1CAP14 PO; -LAMO150T2 PO; +LATA7.5D EACH EYE; +LORA10TA64 PO; +MIRT30TA7 PO; +MOM PO; -OMEP20CA11 PO; -OXYC-133 PO; +PERC10 PO; +POLY15DR31 EACH EYE; +POTA20LI25 PO; -POTA20LI5 PO; +PRO40 PO; -RESEYE OP; +RIVA10TA PO; -SERT100T PO; -TIMO5DRO15 OP; +TIMO5DRO16 EACH EYE; +UTI-STAT PO; +VITA1CAP PO; +WITC1MED28 TP; -XALEYE OP; -ZOLP5TAB2 PO; +[UNRECOGNIZED DRUG - CODE] PO; +[UNRECOGNIZED DRUG - CODE] RC
[2020-10-15 17:40] VITALS: BP_SYST 120
[2020-10-15 18:36] LABS: BASOPHILS % (AUTO) 0.2 % (0.0-2.0); HEMATOCRIT 35.6 % (36-48); HEMOGLOBIN 11.9 g/dL (12.0-16.0); LYMPHOCYTES # (AUTO) 0.8 K/uL (1.0-5.5); LYMPHOCYTES % (AUTO) 6.9 % (20.5-51.5); MEAN CORPUSCULAR HEMOGLOBIN 29 pg (27-31); MEAN CORPUSCULAR HGB CONC 33 % (32-36); MEAN CORPUSCULAR VOLUME 89 fL (79.0-98.0); MONOCYTES # (AUTO) 0.3 K/uL (0.0-1.0); MONOCYTES % (AUTO) 2.4 % (1.7-9.3); NEUTROPHILS # (AUTO) 10.8 K/uL (1.8-7.7); NEUTROPHILS % (AUTO) 90.5 % (40.0-70.0); PLATELET COUNT (AUTO) 566 K/uL (130-430); RED BLOOD CELL COUNT(AUTO) 4.03 MIL/uL (4.2-6.2); RED CELL DISTRIBUTION WIDTH 13.5 % (9.0-15.0)
[2020-10-15 18:53] LABS: CALCIUM 10.4 mg/dL (8.4-11.0); CREATININE 0.9 mg/dL (0.55-1.30); POTASSIUM 3.7 mmol/L (3.5-5.1)
[2020-10-15 19:00] LABS: ALBUMIN 2.5 g/dL (3.4-4.8); PROTHROMBIN TIME 10.8 SECS (9.5-12.5); TOTAL BILIRUBIN 0.2 mg/dL (0.0-1.0)
[2020-10-15 19:04] LABS: BILIRUBIN,URINE NEGATIVE (NEGATIVE); BLOOD, URINE 2+ (NEGATIVE); COLOR,URINE YELLOW (YELLOW); GLUCOSE,URINE NEGATIVE (NEGATIVE); KETONES,URINE TRACE (NEGATIVE); LEUKOCYTE ESTERASE ,URINE 3+ (NEGATIVE); NITRITE, URINE NEGATIVE (NEGATIVE); PROTEIN URINE 1+ (NEGATIVE); UROBILINOGEN,URINE 0.2 (0.2-1.0)
[2020-10-15 19:21] LABS: CLARITY/URINE CLOUDY (CLEAR)
[2020-10-15 19:30] LABS: C-REACTIVE PROTEIN QUANT 16.4 mg/dL (0-0.5)
[2020-10-15 19:34] LABS: FIBRINOGEN 728 mg/dL (200-400)
[2020-10-15 19:43] LABS: BACTERIA,URINE MANY /HPF (None Seen); WBC,URINE >100 /HPF (0-3)
[2020-10-15 19:45] LABS: MUCUS,URINE 2+ /LPF (None Seen); OTHER CASTS, URINE WBC CASTS 2+ /LPF (None Seen)
[2020-10-15] MEDS ORDERED: DEXAMETHASONE SOD PHOSPHATE 4 MG/ML VIAL IVP ONE (21:15)
[2020-10-15] MEDS ORDERED: AZITHROMYCIN 250 MG TABLET PO ONE (21:45)
[2020-10-15] MEDS ORDERED: DECADRON 4 MG TABLET PO SCH (21:45)
[2020-10-15] MEDS ORDERED: IPRATROPIUM/ALBUTEROL SULFATE 3 ML AMPUL.NEB (DUONEB) INH PRN (21:45)
[2020-10-15] MEDS ORDERED: MAGNESIUM SULFATE 50 ML IV PRN (21:45)
[2020-10-16] MEDS ORDERED: IOHEXOL 350 mgI/mL, 150 ML INFUS..BTL IV ONE (00:02)
[2020-10-16] MEDS ORDERED: METOPROLOL TARTRATE 50 MG TABLET PO ONE (01:45)
[2020-10-16] MEDS ORDERED: LOSARTAN POTASSIUM 50 MG TABLET (COZAAR) ONE (01:52)
[2020-10-16] MEDS: NACL 0.9% 1,000 ML IV SCH ×3 (01:57→22:16)
[2020-10-16 01:58] VITALS: BP_SYST 145
[2020-10-16] MEDS: LORazepam 2 MG/ML VIAL IVP PRN (02:01)
[2020-10-16] MEDS ORDERED: ALBUTEROL MDI INHALATION 8 GM INH INH PRN (02:15)
[2020-10-16 03:25] VITALS: BP_SYST 161
[2020-10-16 07:02] LABS: BASOPHILS % (AUTO) 0.4 % (0.0-2.0); HEMATOCRIT 32.6 % (36-48); HEMOGLOBIN 10.8 g/dL (12.0-16.0); LYMPHOCYTES # (AUTO) 1.2 K/uL (1.0-5.5); LYMPHOCYTES % (AUTO) 14.3 % (20.5-51.5); MEAN CORPUSCULAR HEMOGLOBIN 29 pg (27-31); MEAN CORPUSCULAR HGB CONC 33 % (32-36); MEAN CORPUSCULAR VOLUME 89 fL (79.0-98.0); MONOCYTES # (AUTO) 0.4 K/uL (0.0-1.0); MONOCYTES % (AUTO) 4.6 % (1.7-9.3); NEUTROPHILS # (AUTO) 6.5 K/uL (1.8-7.7); NEUTROPHILS % (AUTO) 80.7 % (40.0-70.0); PLATELET COUNT (AUTO) 485 K/uL (130-430); RED BLOOD CELL COUNT(AUTO) 3.67 MIL/uL (4.2-6.2); RED CELL DISTRIBUTION WIDTH 13.5 % (9.0-15.0)
[2020-10-16 07:38] LABS: CHLORIDE 108 mmol/L (98-107); CREATININE 0.84 mg/dL (0.55-1.30); GLUCOSE 128 mg/dL (70-99); POTASSIUM 3.8 mmol/L (3.5-5.1); SODIUM SERUM 149 mmol/L (136-145); UREA NITROGEN, BLOOD 33 mg/dL (8-21)
[2020-10-16 08:15] VITALS: BP_SYST 165
[2020-10-16 08:21] LABS: GFR AFRICAN AMERICAN 87 mL/min (>90)
[2020-10-16 08:29] LABS: ANION GAP < 3 (5-15); CALCIUM 8.6 mg/dL (8.4-11.0)
[2020-10-16 08:56] LABS: ERYTHROCYTE SEDIMENTATION RATE 101 MM/HR (0-20)
[2020-10-16] MEDS ORDERED: LORATADINE PO SCH (09:00)
[2020-10-16] MEDS ORDERED: DIVALPROEX SODIUM 250 MG PO SCH (09:00)
[2020-10-16] MEDS: LORATADINE 10 MG TABLET PO SCH (09:01)
[2020-10-16] MEDS: cefTRIAXone 1 GM in D5W 50 ML IV SCH (09:01)
[2020-10-16] MEDS: ASCORBIC ACID 500 MG TABLET PO SCH (09:01)
[2020-10-16] MEDS: DIVALPROEX SODIUM 250 MG TABLET(DEPAKOTE) PO SCH ×2 (09:02→20:02)
[2020-10-16] MEDS: METOPROLOL TARTRATE 50 MG TABLET PO SCH ×2 (09:02→20:07)
[2020-10-16] MEDS: CHOLECALCIFEROL (VITAMIN D3) 2,000 UNIT TABLET PO SCH (09:02)
[2020-10-16] MEDS: GABAPENTIN 300 MG CAPSULE PO SCH ×3 (09:03→20:02)
[2020-10-16] MEDS: AZITHROMYCIN 250 MG TABLET PO SCH (09:04)
[2020-10-16] MEDS: ENOXAPARIN SODIUM 40 MG/0.4 ML SYRINGE SUBCUT SCH (09:04)
[2020-10-16 09:47] LABS: C-REACTIVE PROTEIN QUANT 12.7 mg/dL (0-0.5)
[2020-10-16] MEDS ORDERED: hydrALAZINE HCL 20 MG/ML VIAL IVP PRN (10:15)
[2020-10-16] MEDS ORDERED: LamoTRIgine 100 MG TABLET PO ONE (10:15)
[2020-10-16 13:33] VITALS: BP_SYST 153
[2020-10-16 17:08] VITALS: BP_SYST 165
[2020-10-16 20:00] VITALS: BP_SYST 157
[2020-10-16] MEDS: LATANOPROST 2.5 ML DROPS (XALATAN) OP SCH (20:02)
[2020-10-16] MEDS: MIRTAZAPINE 15 MG TABLET PO SCH (20:02)
[2020-10-16] MEDS: TIMOLOL MALEATE 0.25% OPHTHALMIC DROPS 5 ML EACH EYE SCH (20:03)
[2020-10-16] MEDS ORDERED: NON-FORMULARY MEDICATION (Latanoprost/Pf (Latanoprost 0.005% Eye Drop) 1 DROP) EACH EYE SCH (21:00)
[2020-10-17 00:39] VITALS: BP_SYST 150
[2020-10-17 06:36] LABS: BASOPHILS % (AUTO) 0.4 % (0.0-2.0); EOSINOPHILS % (AUTO) 0.1 % (0.0-4.0); HEMATOCRIT 31.5 % (36-48); HEMOGLOBIN 10.5 g/dL (12.0-16.0); LYMPHOCYTES # (AUTO) 1.1 K/uL (1.0-5.5); LYMPHOCYTES % (AUTO) 13.3 % (20.5-51.5); MEAN CORPUSCULAR HEMOGLOBIN 30 pg (27-31); MEAN CORPUSCULAR HGB CONC 33 % (32-36); MEAN CORPUSCULAR VOLUME 90 fL (79.0-98.0); MONOCYTES # (AUTO) 0.7 K/uL (0.0-1.0); NEUTROPHILS # (AUTO) 6.1 K/uL (1.8-7.7); NEUTROPHILS % (AUTO) 77.2 % (40.0-70.0); PLATELET COUNT (AUTO) 444 K/uL (130-430); RED CELL DISTRIBUTION WIDTH 13.3 % (9.0-15.0); WHITE BLOOD COUNT (AUTO) 7.9 K/uL (4.8-10.8)
[2020-10-17 06:59] LABS: C-REACTIVE PROTEIN QUANT 4.7 mg/dL (0-0.5); CALCIUM 8.3 mg/dL (8.4-11.0); CREATININE 0.47 mg/dL (0.55-1.30); POTASSIUM 3.1 mmol/L (3.5-5.1)
[2020-10-17 07:52] LABS: ERYTHROCYTE SEDIMENTATION RATE 90 MM/HR (0-20)
[2020-10-17 08:00] VITALS: BP_SYST 148
[2020-10-17] MEDS: MORPHINE 2 MG/ML INJ. SYRINGE IVP PRN (09:42)
[2020-10-17] MEDS: CHOLECALCIFEROL (VITAMIN D3) 2,000 UNIT TABLET PO SCH (09:44)
[2020-10-17] MEDS: DIVALPROEX SODIUM 250 MG TABLET(DEPAKOTE) PO SCH ×2 (09:44→21:10)
[2020-10-17] MEDS: LORATADINE 10 MG TABLET PO SCH (09:44)
[2020-10-17] MEDS: ASCORBIC ACID 500 MG TABLET PO SCH (09:44)
[2020-10-17] MEDS: AZITHROMYCIN 250 MG TABLET PO SCH (09:44)
[2020-10-17] MEDS: LamoTRIgine 100 MG TABLET PO SCH (09:45)
[2020-10-17] MEDS: METOPROLOL TARTRATE 50 MG TABLET PO SCH ×2 (09:45→21:11)
[2020-10-17] MEDS: GABAPENTIN 300 MG CAPSULE PO SCH ×3 (09:45→21:11)
[2020-10-17] MEDS: DEXAMETHASONE SOD PHOSPHATE 10 MG/ML VIAL IVP SCH (09:46)
[2020-10-17] MEDS: ENOXAPARIN SODIUM 40 MG/0.4 ML SYRINGE SUBCUT SCH (09:50)
[2020-10-17] MEDS: cefTRIAXone 1 GM in D5W 50 ML IV SCH (09:58)
[2020-10-17] MEDS ORDERED: POTASSIUM CHLORIDE 40 MEQ, LIDOCAINE JECT 2% PF 100 MG 50 MG in NS 250 ML IV ONE (10:00)
[2020-10-17] MEDS: D5NS 1,000 ML IV SCH ×2 (10:51→22:53)
[2020-10-17 12:20] VITALS: BP_SYST 140
[2020-10-17] MEDS: VANCOMYCIN HCL 1,000 MG in NS 250 ML IV SCH (14:35)
[2020-10-17] MEDS ORDERED: MUPIROCIN 2% TOPICAL OINTMENT 22 GM NS PRN (15:00)
[2020-10-17] MEDS ORDERED: MUPIROCIN 2% TOPICAL OINTMENT 22 GM NS ONE (15:30)
[2020-10-17 16:16] VITALS: BP_SYST 130
[2020-10-17] MEDS: LATANOPROST 2.5 ML DROPS (XALATAN) OP SCH (18:09)
[2020-10-17 21:00] VITALS: BP_SYST 136
[2020-10-17] MEDS: MIRTAZAPINE 15 MG TABLET PO SCH (21:11)
[2020-10-17] MEDS: TIMOLOL MALEATE 0.25% OPHTHALMIC DROPS 5 ML EACH EYE SCH (21:12)
[2020-10-17] MEDS: MUPIROCIN 2% TOPICAL OINTMENT 22 GM NS SCH (21:14)
[2020-10-18] MEDS: VANCOMYCIN HCL 1,000 MG in NS 250 ML IV SCH ×2 (00:50→14:19)
[2020-10-18 01:05] VITALS: BP_SYST 143
[2020-10-18 06:58] LABS: BASOPHILS % (AUTO) 0.3 % (0.0-2.0); EOSINOPHILS % (AUTO) 0.2 % (0.0-4.0); HEMATOCRIT 32.5 % (36-48); HEMOGLOBIN 10.9 g/dL (12.0-16.0); LYMPHOCYTES # (AUTO) 1.5 K/uL (1.0-5.5); LYMPHOCYTES % (AUTO) 21.4 % (20.5-51.5); MEAN CORPUSCULAR HEMOGLOBIN 30 pg (27-31); MEAN CORPUSCULAR HGB CONC 34 % (32-36); MEAN CORPUSCULAR VOLUME 90 fL (79.0-98.0); MONOCYTES # (AUTO) 0.6 K/uL (0.0-1.0); NEUTROPHILS # (AUTO) 4.8 K/uL (1.8-7.7); NEUTROPHILS % (AUTO) 69.1 % (40.0-70.0); PLATELET COUNT (AUTO) 417 K/uL (130-430); RED CELL DISTRIBUTION WIDTH 13.2 % (9.0-15.0); WHITE BLOOD COUNT (AUTO) 6.9 K/uL (4.8-10.8)
[2020-10-18 07:41] LABS: ALBUMIN 2.2 g/dL (3.4-4.8); C-REACTIVE PROTEIN QUANT 2.6 mg/dL (0-0.5); CALCIUM 8.2 mg/dL (8.4-11.0); CREATININE 0.41 mg/dL (0.55-1.30); TOTAL BILIRUBIN 0.2 mg/dL (0.0-1.0)
[2020-10-18 07:54] LABS: POTASSIUM 2.6 mmol/L (3.5-5.1)
[2020-10-18 08:00] VITALS: BP_SYST 143
[2020-10-18] MEDS: POTASSIUM CHLORIDE 20 MEQ TAB.PRT.SR PO PRN ×2 (08:41→10:43)
[2020-10-18] MEDS: LORATADINE 10 MG TABLET PO SCH (08:41)
[2020-10-18] MEDS: AZITHROMYCIN 250 MG TABLET PO SCH (08:41)
[2020-10-18] MEDS: CHOLECALCIFEROL (VITAMIN D3) 2,000 UNIT TABLET PO SCH (08:41)
[2020-10-18] MEDS: LamoTRIgine 100 MG TABLET PO SCH (08:41)
[2020-10-18] MEDS: GABAPENTIN 300 MG CAPSULE PO SCH ×3 (08:42→20:34)
[2020-10-18] MEDS: ASCORBIC ACID 500 MG TABLET PO SCH (08:42)
[2020-10-18] MEDS: DIVALPROEX SODIUM 250 MG TABLET(DEPAKOTE) PO SCH ×2 (08:42→20:35)
[2020-10-18] MEDS: METOPROLOL TARTRATE 50 MG TABLET PO SCH ×2 (08:44→20:35)
[2020-10-18] MEDS: ENOXAPARIN SODIUM 40 MG/0.4 ML SYRINGE SUBCUT SCH (08:54)
[2020-10-18] MEDS: cefTRIAXone 1 GM in D5W 50 ML IV SCH (09:58)
[2020-10-18] MEDS: DEXAMETHASONE SOD PHOSPHATE 10 MG/ML VIAL IVP SCH (09:59)
[2020-10-18] MEDS: MUPIROCIN 2% TOPICAL OINTMENT 22 GM NS SCH ×2 (10:00→20:34)
[2020-10-18 10:43] LABS: ERYTHROCYTE SEDIMENTATION RATE 78 MM/HR (0-20)
[2020-10-18 12:16] VITALS: BP_SYST 128
[2020-10-18] MEDS: DOCUSATE SODIUM 100 MG CAPSULE PO PRN ×2 (16:10→23:45)
[2020-10-18 16:20] VITALS: BP_SYST 132
[2020-10-18] MEDS: LATANOPROST 2.5 ML DROPS (XALATAN) OP SCH (18:01)
[2020-10-18 20:00] VITALS: BP_SYST 107
[2020-10-18] MEDS: TIMOLOL MALEATE 0.25% OPHTHALMIC DROPS 5 ML EACH EYE SCH (20:33)
[2020-10-18] MEDS: MIRTAZAPINE 15 MG TABLET PO SCH (20:35)
[2020-10-18] MEDS: NACL 0.9% 1,000 ML IV SCH ×2 (20:37→23:18)
[2020-10-18] MEDS ORDERED: MEROPENEM 500 MG VIAL IV ONE ×2 (23:28→23:30)
[2020-10-18] MEDS: MEROPENEM 500 MG in NS 50 ML IV SCH (23:43)
[2020-10-18] MEDS: ACETAMINOPHEN 325 MG TABLET PO PRN (23:44)
[2020-10-18] MEDS: ZOLPIDEM TARTRATE 5 MG TABLET PO PRN (23:45)
[2020-10-18] MEDS: ONDANSETRON HCL 4 MG/2 ML VIAL IVP PRN (23:49)
[2020-10-19 00:28] VITALS: BP_SYST 116
[2020-10-19] MEDS: VANCOMYCIN HCL 1,000 MG in NS 250 ML IV SCH (01:25)
[2020-10-19] MEDS: MEROPENEM 500 MG in NS 50 ML IV SCH ×3 (06:52→22:20)
[2020-10-19 06:54] LABS: ALBUMIN 1.8 g/dL (3.4-4.8); C-REACTIVE PROTEIN QUANT 2.1 mg/dL (0-0.5); CALCIUM 7.6 mg/dL (8.4-11.0); CREATININE 0.35 mg/dL (0.55-1.30); POTASSIUM 3.4 mmol/L (3.5-5.1); TOTAL BILIRUBIN 0.2 mg/dL (0.0-1.0)
[2020-10-19 08:00] VITALS: BP_SYST 119
[2020-10-19] MEDS: ENOXAPARIN SODIUM 40 MG/0.4 ML SYRINGE SUBCUT SCH (09:10)
[2020-10-19] MEDS: CHOLECALCIFEROL (VITAMIN D3) 2,000 UNIT TABLET PO SCH (09:11)
[2020-10-19] MEDS: LamoTRIgine 100 MG TABLET PO SCH (09:11)
[2020-10-19] MEDS: DIVALPROEX SODIUM 250 MG TABLET(DEPAKOTE) PO SCH ×2 (09:12→22:17)
[2020-10-19] MEDS: METOPROLOL TARTRATE 50 MG TABLET PO SCH ×2 (09:12→22:16)
[2020-10-19] MEDS: GABAPENTIN 300 MG CAPSULE PO SCH ×3 (09:13→22:17)
[2020-10-19] MEDS: AZITHROMYCIN 250 MG TABLET PO SCH (09:13)
[2020-10-19] MEDS: ASCORBIC ACID 500 MG TABLET PO SCH (09:13)
[2020-10-19] MEDS: LORATADINE 10 MG TABLET PO SCH (09:13)
[2020-10-19] MEDS: MUPIROCIN 2% TOPICAL OINTMENT 22 GM NS SCH ×2 (09:14→22:39)
[2020-10-19] MEDS: DEXAMETHASONE SOD PHOSPHATE 10 MG/ML VIAL IVP SCH (09:14)
[2020-10-19 09:23] VITALS: BP_SYST 119
[2020-10-19 09:50] LABS: BASOPHILS % (AUTO) 0.2 % (0.0-2.0); EOSINOPHILS # (AUTO) 0.1 K/uL (0.0-0.4); EOSINOPHILS % (AUTO) 0.9 % (0.0-4.0); HEMATOCRIT 32.2 % (36-48); HEMOGLOBIN 10.8 g/dL (12.0-16.0); LYMPHOCYTES # (AUTO) 1.9 K/uL (1.0-5.5); LYMPHOCYTES % (AUTO) 19.8 % (20.5-51.5); MEAN CORPUSCULAR HEMOGLOBIN 30 pg (27-31); MEAN CORPUSCULAR HGB CONC 34 % (32-36); MEAN CORPUSCULAR VOLUME 88 fL (79.0-98.0); MONOCYTES # (AUTO) 0.8 K/uL (0.0-1.0); MONOCYTES % (AUTO) 8.2 % (1.7-9.3); NEUTROPHILS # (AUTO) 6.6 K/uL (1.8-7.7); NEUTROPHILS % (AUTO) 70.9 % (40.0-70.0); PLATELET COUNT (AUTO) 375 K/uL (130-430); RED BLOOD CELL COUNT(AUTO) 3.66 MIL/uL (4.2-6.2); RED CELL DISTRIBUTION WIDTH 13.5 % (9.0-15.0)
[2020-10-19 09:53] LABS: WHITE BLOOD COUNT (AUTO) 9.4 K/uL (4.8-10.8)
[2020-10-19 11:54] LABS: ERYTHROCYTE SEDIMENTATION RATE 58 MM/HR (0-20)
[2020-10-19 12:00] VITALS: BP_SYST 118
[2020-10-19] MEDS: NACL 0.9% 1,000 ML IV SCH (14:43)
[2020-10-19 16:00] VITALS: BP_SYST 116
[2020-10-19] MEDS: LATANOPROST 2.5 ML DROPS (XALATAN) OP SCH ×2 (18:03→22:39)
[2020-10-19 20:00] VITALS: BP_SYST 113
[2020-10-19] MEDS: MIRTAZAPINE 15 MG TABLET PO SCH (22:15)
[2020-10-19] MEDS: ZOLPIDEM TARTRATE 5 MG TABLET PO PRN (22:33)
[2020-10-19] MEDS: TIMOLOL MALEATE 0.25% OPHTHALMIC DROPS 5 ML EACH EYE SCH (23:31)
[2020-10-20 00:30] VITALS: BP_SYST 119
[2020-10-20 00:35] VITALS: BP_SYST 90
[2020-10-20] MEDS: NACL 0.9% 1,000 ML IV SCH ×2 (02:08→18:12)
[2020-10-20] MEDS: MORPHINE 2 MG/ML INJ. SYRINGE IVP PRN (02:21)
[2020-10-20] MEDS ORDERED: BISACODYL 10 MG/SUPPOSITORY RC PRN (04:00)
[2020-10-20] MEDS ORDERED: DEXTROSE 50% JECT 50 ML DISP.SYRIN ONE (05:58)
[2020-10-20] MEDS: MEROPENEM 500 MG in NS 50 ML IV SCH ×3 (06:13→21:24)
[2020-10-20 07:00] LABS: BASOPHILS % (AUTO) 0.2 % (0.0-2.0); EOSINOPHILS # (AUTO) 0.1 K/uL (0.0-0.4); EOSINOPHILS % (AUTO) 1.4 % (0.0-4.0); HEMATOCRIT 30.4 % (36-48); HEMOGLOBIN 10.3 g/dL (12.0-16.0); LYMPHOCYTES # (AUTO) 1.6 K/uL (1.0-5.5); LYMPHOCYTES % (AUTO) 18.5 % (20.5-51.5); MEAN CORPUSCULAR HEMOGLOBIN 31 pg (27-31); MEAN CORPUSCULAR HGB CONC 34 % (32-36); MONOCYTES # (AUTO) 0.8 K/uL (0.0-1.0); MONOCYTES % (AUTO) 8.7 % (1.7-9.3); NEUTROPHILS # (AUTO) 6.3 K/uL (1.8-7.7); NEUTROPHILS % (AUTO) 71.2 % (40.0-70.0); PLATELET COUNT (AUTO) 348 K/uL (130-430); RED BLOOD CELL COUNT(AUTO) 3.29 MIL/uL (4.2-6.2); RED CELL DISTRIBUTION WIDTH 13.8 % (9.0-15.0); WHITE BLOOD COUNT (AUTO) 8.8 K/uL (4.8-10.8)
[2020-10-20 07:47] LABS: C-REACTIVE PROTEIN QUANT 2.7 mg/dL (0-0.5); CALCIUM 8.1 mg/dL (8.4-11.0); CREATININE 0.36 mg/dL (0.55-1.30); POTASSIUM 3.3 mmol/L (3.5-5.1); TOTAL BILIRUBIN 0.1 mg/dL (0.0-1.0)
[2020-10-20 08:00] VITALS: BP_SYST 118
[2020-10-20] MEDS: ENOXAPARIN SODIUM 40 MG/0.4 ML SYRINGE SUBCUT SCH (08:11)
[2020-10-20] MEDS: DEXAMETHASONE SOD PHOSPHATE 10 MG/ML VIAL IVP SCH (08:12)
[2020-10-20] MEDS: LamoTRIgine 100 MG TABLET PO SCH (08:12)
[2020-10-20] MEDS: CHOLECALCIFEROL (VITAMIN D3) 2,000 UNIT TABLET PO SCH (08:13)
[2020-10-20] MEDS: GABAPENTIN 300 MG CAPSULE PO SCH ×3 (08:14→21:22)
[2020-10-20] MEDS: ASCORBIC ACID 500 MG TABLET PO SCH (08:14)
[2020-10-20] MEDS: AZITHROMYCIN 250 MG TABLET PO SCH (08:14)
[2020-10-20] MEDS: METOPROLOL TARTRATE 50 MG TABLET PO SCH ×2 (08:15→21:23)
[2020-10-20] MEDS ORDERED: BISACODYL 10 MG/SUPPOSITORY RC ONE (08:15)
[2020-10-20] MEDS ORDERED: POTASSIUM CHLORIDE 20 MEQ TAB.PRT.SR PO PRN (08:15)
[2020-10-20] MEDS: MUPIROCIN 2% TOPICAL OINTMENT 22 GM NS SCH ×2 (08:16→21:25)
[2020-10-20] MEDS: LORATADINE 10 MG TABLET PO SCH (08:16)
[2020-10-20] MEDS: DIVALPROEX SODIUM 250 MG TABLET(DEPAKOTE) PO SCH ×2 (08:17→21:22)
[2020-10-20] MEDS: DOCUSATE SODIUM 100 MG CAPSULE PO SCH ×2 (08:51→21:24)
[2020-10-20 09:16] LABS: MEAN CORPUSCULAR VOLUME 92 fL (79.0-98.0)
[2020-10-20 10:17] LABS: ERYTHROCYTE SEDIMENTATION RATE 48 MM/HR (0-20)
[2020-10-20 14:14] VITALS: BP_SYST 124
[2020-10-20 16:00] VITALS: BP_SYST 118
[2020-10-20] MEDS: POTASSIUM CHLORIDE 20 MEQ TAB.PRT.SR PO PRN (16:24)
[2020-10-20] MEDS: ACETAMINOPHEN 325 MG TABLET PO PRN (17:10)
[2020-10-20 20:00] VITALS: BP_SYST 132
[2020-10-20] MEDS: MIRTAZAPINE 15 MG TABLET PO SCH (21:22)
[2020-10-20] MEDS: TIMOLOL MALEATE 0.25% OPHTHALMIC DROPS 5 ML EACH EYE SCH (21:25)
[2020-10-21] MEDS: ZOLPIDEM TARTRATE 5 MG TABLET PO PRN (00:04)
[2020-10-21] MEDS: MORPHINE 2 MG/ML INJ. SYRINGE IVP PRN (00:27)
[2020-10-21 00:35] VITALS: BP_SYST 90
[2020-10-21] MEDS: NACL 0.9% 1,000 ML IV SCH ×2 (02:11→22:13)
[2020-10-21] MEDS: LORazepam 2 MG/ML VIAL IVP PRN (04:15)
[2020-10-21] MEDS: MEROPENEM 500 MG in NS 50 ML IV SCH ×3 (05:45→22:13)
[2020-10-21 07:37] LABS: ALBUMIN 1.8 g/dL (3.4-4.8); C-REACTIVE PROTEIN QUANT 3.5 mg/dL (0-0.5); CALCIUM 8.3 mg/dL (8.4-11.0); CREATININE 0.33 mg/dL (0.55-1.30); POTASSIUM 3.9 mmol/L (3.5-5.1); TOTAL BILIRUBIN 0.1 mg/dL (0.0-1.0)
[2020-10-21 08:00] VITALS: BP_SYST 118
[2020-10-21] MEDS: ASCORBIC ACID 500 MG TABLET PO SCH (08:43)
[2020-10-21] MEDS: DIVALPROEX SODIUM 250 MG TABLET(DEPAKOTE) PO SCH ×2 (08:43→20:43)
[2020-10-21] MEDS: LORATADINE 10 MG TABLET PO SCH (08:43)
[2020-10-21] MEDS: METOPROLOL TARTRATE 50 MG TABLET PO SCH ×2 (08:44→20:41)
[2020-10-21] MEDS: GABAPENTIN 300 MG CAPSULE PO SCH ×3 (08:44→20:42)
[2020-10-21] MEDS: ENOXAPARIN SODIUM 40 MG/0.4 ML SYRINGE SUBCUT SCH (08:45)
[2020-10-21] MEDS: LamoTRIgine 100 MG TABLET PO SCH (08:46)
[2020-10-21] MEDS: CHOLECALCIFEROL (VITAMIN D3) 2,000 UNIT TABLET PO SCH (08:46)
[2020-10-21] MEDS: DOCUSATE SODIUM 100 MG CAPSULE PO SCH ×2 (08:46→20:43)
[2020-10-21] MEDS: DEXAMETHASONE SOD PHOSPHATE 10 MG/ML VIAL IVP SCH (08:47)
[2020-10-21] MEDS: MUPIROCIN 2% TOPICAL OINTMENT 22 GM NS SCH ×2 (08:49→20:44)
[2020-10-21 12:06] VITALS: BP_SYST 112
[2020-10-21 16:20] VITALS: BP_SYST 115
[2020-10-21] MEDS: LATANOPROST 2.5 ML DROPS (XALATAN) OP SCH (17:06)
[2020-10-21 20:37] VITALS: BP_SYST 108
[2020-10-21] MEDS: ONDANSETRON HCL 4 MG/2 ML VIAL IVP PRN (20:42)
[2020-10-21] MEDS: MIRTAZAPINE 15 MG TABLET PO SCH (20:42)
[2020-10-21] MEDS: TIMOLOL MALEATE 0.25% OPHTHALMIC DROPS 5 ML EACH EYE SCH (20:44)
[2020-10-22 00:23] VITALS: BP_SYST 105
[2020-10-22] MEDS: ACETAMINOPHEN 325 MG TABLET PO PRN ×2 (03:33→13:29)
[2020-10-22] MEDS: MEROPENEM 500 MG in NS 50 ML IV SCH ×3 (05:38→21:48)
[2020-10-22 07:10] LABS: BASOPHILS % (AUTO) 0.3 % (0.0-2.0); EOSINOPHILS # (AUTO) 0.1 K/uL (0.0-0.4); EOSINOPHILS % (AUTO) 1.2 % (0.0-4.0); HEMOGLOBIN 9.7 g/dL (12.0-16.0); LYMPHOCYTES # (AUTO) 1.8 K/uL (1.0-5.5); LYMPHOCYTES % (AUTO) 23.6 % (20.5-51.5); MEAN CORPUSCULAR HEMOGLOBIN 30 pg (27-31); MEAN CORPUSCULAR HGB CONC 33 % (32-36); MEAN CORPUSCULAR VOLUME 90 fL (79.0-98.0); MONOCYTES # (AUTO) 0.7 K/uL (0.0-1.0); MONOCYTES % (AUTO) 9.1 % (1.7-9.3); NEUTROPHILS # (AUTO) 4.9 K/uL (1.8-7.7); NEUTROPHILS % (AUTO) 65.8 % (40.0-70.0); PLATELET COUNT (AUTO) 304 K/uL (130-430); RED BLOOD CELL COUNT(AUTO) 3.22 MIL/uL (4.2-6.2); RED CELL DISTRIBUTION WIDTH 13.8 % (9.0-15.0); WHITE BLOOD COUNT (AUTO) 7.5 K/uL (4.8-10.8)
[2020-10-22 07:31] LABS: CALCIUM 8.5 mg/dL (8.4-11.0); CREATININE 0.42 mg/dL (0.55-1.30); POTASSIUM 3.9 mmol/L (3.5-5.1)
[2020-10-22 08:00] VITALS: BP_SYST 115
[2020-10-22] MEDS: LORATADINE 10 MG TABLET PO SCH (10:24)
[2020-10-22] MEDS: GABAPENTIN 300 MG CAPSULE PO SCH ×3 (10:25→21:42)
[2020-10-22] MEDS: METOPROLOL TARTRATE 50 MG TABLET PO SCH ×2 (10:26→21:00)
[2020-10-22] MEDS: DIVALPROEX SODIUM 250 MG TABLET(DEPAKOTE) PO SCH ×2 (10:26→21:42)
[2020-10-22] MEDS: ASCORBIC ACID 500 MG TABLET PO SCH (10:26)
[2020-10-22] MEDS: LamoTRIgine 100 MG TABLET PO SCH (10:26)
[2020-10-22] MEDS: DOCUSATE SODIUM 100 MG CAPSULE PO SCH ×2 (10:26→21:43)
[2020-10-22] MEDS: CHOLECALCIFEROL (VITAMIN D3) 2,000 UNIT TABLET PO SCH (10:26)
[2020-10-22] MEDS: DEXAMETHASONE SOD PHOSPHATE 10 MG/ML VIAL IVP SCH (10:28)
[2020-10-22] MEDS: ENOXAPARIN SODIUM 40 MG/0.4 ML SYRINGE SUBCUT SCH (10:30)
[2020-10-22 11:43] LABS: ERYTHROCYTE SEDIMENTATION RATE 37 MM/HR (0-20)
[2020-10-22 12:00] VITALS: BP_SYST 107
[2020-10-22] MEDS: NACL 0.9% 1,000 ML IV SCH (15:32)
[2020-10-22 16:00] VITALS: BP_SYST 110
[2020-10-22] MEDS: LATANOPROST 2.5 ML DROPS (XALATAN) OP SCH (17:21)
[2020-10-22] MEDS: MORPHINE 2 MG/ML INJ. SYRINGE IVP PRN (17:40)
[2020-10-22 20:00] VITALS: BP_SYST 96
[2020-10-22] MEDS: TIMOLOL MALEATE 0.25% OPHTHALMIC DROPS 5 ML EACH EYE SCH (21:44)
[2020-10-22] MEDS: MIRTAZAPINE 15 MG TABLET PO SCH (21:44)
[2020-10-23] MEDS: MORPHINE 2 MG/ML INJ. SYRINGE IVP PRN ×4 (00:06→22:30)
[2020-10-23 00:51] VITALS: BP_SYST 106
[2020-10-23] MEDS: NACL 0.9% 1,000 ML IV SCH ×3 (03:24→18:07)
[2020-10-23] MEDS: MEROPENEM 500 MG in NS 50 ML IV SCH ×3 (05:23→22:05)
[2020-10-23 07:07] LABS: BASOPHILS % (AUTO) 0.4 % (0.0-2.0); EOSINOPHILS # (AUTO) 0.1 K/uL (0.0-0.4); EOSINOPHILS % (AUTO) 0.9 % (0.0-4.0); HEMATOCRIT 29.7 % (36-48); LYMPHOCYTES # (AUTO) 1.8 K/uL (1.0-5.5); LYMPHOCYTES % (AUTO) 22.5 % (20.5-51.5); MEAN CORPUSCULAR HEMOGLOBIN 30 pg (27-31); MEAN CORPUSCULAR HGB CONC 34 % (32-36); MEAN CORPUSCULAR VOLUME 89 fL (79.0-98.0); MONOCYTES # (AUTO) 0.7 K/uL (0.0-1.0); MONOCYTES % (AUTO) 8.8 % (1.7-9.3); NEUTROPHILS # (AUTO) 5.3 K/uL (1.8-7.7); NEUTROPHILS % (AUTO) 67.4 % (40.0-70.0); PLATELET COUNT (AUTO) 312 K/uL (130-430); RED BLOOD CELL COUNT(AUTO) 3.33 MIL/uL (4.2-6.2); RED CELL DISTRIBUTION WIDTH 13.7 % (9.0-15.0); WHITE BLOOD COUNT (AUTO) 7.9 K/uL (4.8-10.8)
[2020-10-23 07:15] LABS: CALCIUM 8.3 mg/dL (8.4-11.0); CHLORIDE 104 mmol/L (98-107); CREATININE 0.44 mg/dL (0.55-1.30); GLUCOSE 93 mg/dL (70-99); POTASSIUM 3.8 mmol/L (3.5-5.1); SODIUM SERUM 142 mmol/L (136-145); UREA NITROGEN, BLOOD 13 mg/dL (8-21)
[2020-10-23 07:33] LABS: GFR AFRICAN AMERICAN 183 mL/min (>90)
[2020-10-23 07:34] LABS: ANION GAP < 3 (5-15)
[2020-10-23 10:00] VITALS: BP_SYST 126
[2020-10-23] MEDS: DEXAMETHASONE SOD PHOSPHATE 10 MG/ML VIAL IVP SCH (10:12)
[2020-10-23] MEDS: CHOLECALCIFEROL (VITAMIN D3) 2,000 UNIT TABLET PO SCH (10:12)
[2020-10-23] MEDS: LamoTRIgine 100 MG TABLET PO SCH (10:13)
[2020-10-23] MEDS: DOCUSATE SODIUM 100 MG CAPSULE PO SCH ×2 (10:13→22:03)
[2020-10-23] MEDS: LORATADINE 10 MG TABLET PO SCH (10:13)
[2020-10-23] MEDS: ASCORBIC ACID 500 MG TABLET PO SCH (10:13)
[2020-10-23] MEDS: GABAPENTIN 300 MG CAPSULE PO SCH ×3 (10:15→22:05)
[2020-10-23] MEDS: DIVALPROEX SODIUM 250 MG TABLET(DEPAKOTE) PO SCH ×2 (10:16→22:04)
[2020-10-23] MEDS: ENOXAPARIN SODIUM 40 MG/0.4 ML SYRINGE SUBCUT SCH (10:16)
[2020-10-23] MEDS: METOPROLOL TARTRATE 50 MG TABLET PO SCH ×2 (10:43→22:04)
[2020-10-23 12:00] VITALS: BP_SYST 121
[2020-10-23 16:00] VITALS: BP_SYST 124
[2020-10-23] MEDS: LATANOPROST 2.5 ML DROPS (XALATAN) OP SCH (18:09)
[2020-10-23 19:00] VITALS: BP_SYST 107
[2020-10-23 20:00] VITALS: BP_SYST 107
[2020-10-23] MEDS: MIRTAZAPINE 15 MG TABLET PO SCH (22:05)
[2020-10-23] MEDS: TIMOLOL MALEATE 0.25% OPHTHALMIC DROPS 5 ML EACH EYE SCH (22:27)
[2020-10-24] VITALS: BP_SYST 136
[2020-10-24] MEDS: LORazepam 2 MG/ML VIAL IVP PRN (00:47)
[2020-10-24] MEDS: MEROPENEM 500 MG in NS 50 ML IV SCH (05:23)
[2020-10-24 07:15] LABS: CALCIUM 8.4 mg/dL (8.4-11.0); CHLORIDE 104 mmol/L (98-107); CREATININE 0.47 mg/dL (0.55-1.30); GLUCOSE 88 mg/dL (70-99); POTASSIUM 3.8 mmol/L (3.5-5.1); SODIUM SERUM 142 mmol/L (136-145); UREA NITROGEN, BLOOD 13 mg/dL (8-21)
[2020-10-24 07:33] LABS: GFR AFRICAN AMERICAN 170 mL/min (>90)
[2020-10-24 07:35] LABS: ANION GAP < 3 (5-15)
[2020-10-24 07:48] LABS: BASOPHILS % (AUTO) 0.3 % (0.0-2.0); EOSINOPHILS # (AUTO) 0.1 K/uL (0.0-0.4); EOSINOPHILS % (AUTO) 0.6 % (0.0-4.0); HEMATOCRIT 31.2 % (36-48); HEMOGLOBIN 10.2 g/dL (12.0-16.0); LYMPHOCYTES # (AUTO) 2.2 K/uL (1.0-5.5); LYMPHOCYTES % (AUTO) 17.8 % (20.5-51.5); MEAN CORPUSCULAR HEMOGLOBIN 31 pg (27-31); MEAN CORPUSCULAR HGB CONC 33 % (32-36); MEAN CORPUSCULAR VOLUME 94 fL (79.0-98.0); MONOCYTES # (AUTO) 0.8 K/uL (0.0-1.0); MONOCYTES % (AUTO) 6.3 % (1.7-9.3); NEUTROPHILS # (AUTO) 9.3 K/uL (1.8-7.7); PLATELET COUNT (AUTO) 260 K/uL (130-430); RED BLOOD CELL COUNT(AUTO) 3.32 MIL/uL (4.2-6.2); RED CELL DISTRIBUTION WIDTH 14.2 % (9.0-15.0); WHITE BLOOD COUNT (AUTO) 12.4 K/uL (4.8-10.8)
[2020-10-24 08:00] VITALS: BP_SYST 106
[2020-10-24 08:07] VITALS: BP_SYST 105
[2020-10-24] MEDS: DEXAMETHASONE SOD PHOSPHATE 10 MG/ML VIAL IVP SCH (08:49)
[2020-10-24] MEDS: GABAPENTIN 300 MG CAPSULE PO SCH (08:50)
[2020-10-24] MEDS: DOCUSATE SODIUM 100 MG CAPSULE PO SCH (08:50)
[2020-10-24] MEDS: LORATADINE 10 MG TABLET PO SCH (08:50)
[2020-10-24] MEDS: CHOLECALCIFEROL (VITAMIN D3) 2,000 UNIT TABLET PO SCH (08:50)
[2020-10-24] MEDS: DIVALPROEX SODIUM 250 MG TABLET(DEPAKOTE) PO SCH (08:50)
[2020-10-24] MEDS: LamoTRIgine 100 MG TABLET PO SCH (08:50)
[2020-10-24] MEDS: ENOXAPARIN SODIUM 40 MG/0.4 ML SYRINGE SUBCUT SCH (08:51)
[2020-10-24] MEDS: ASCORBIC ACID 500 MG TABLET PO SCH (08:51)
[2020-10-24] MEDS: METOPROLOL TARTRATE 50 MG TABLET PO SCH (08:52)
== END 2020-10-24 09:20 | DRG 871 ==
LOC: SED 17:39 → STU 21:16
PROVIDERS: ADMIT General Practice; ATTEND General Practice
PROC: XW033E5 Introduction of Remdesivir Anti-infective into Peripheral Vein, Percutaneous Approach, New Technology Group 5 (ICD-10-PCS; principal; 2020-10-15)
PROC: 02HV33Z Insertion of Infusion Device into Superior Vena Cava, Percutaneous Approach (ICD-10-PCS; 2020-10-18)
PROC: B548ZZA Ultrasonography of Superior Vena Cava, Guidance (ICD-10-PCS; 2020-10-18)
DX: A41.9 Sepsis, unspecified organism (principal); U07.1 COVID-19; J12.82 Pneumonia due to coronavirus disease 2019; J96.01 Acute respiratory failure with hypoxia; E43 Unspecified severe protein-calorie malnutrition; N39.0 Urinary tract infection, site not specified; I69.351 Hemiplegia and hemiparesis following cerebral infarction affecting right dominant side; F39 Unspecified mood [affective] disorder; G89.4 Chronic pain syndrome; F41.9 Anxiety disorder, unspecified; K21.9 Gastro-esophageal reflux disease without esophagitis; B96.20 Unspecified Escherichia coli [E. coli] as the cause of diseases classified elsewhere; M81.0 Age-related osteoporosis without current pathological fracture; E87.6 Hypokalemia; K59.00 Constipation, unspecified; D72.810 Lymphocytopenia; I11.0 Hypertensive heart disease with heart failure; I50.9 Heart failure, unspecified; G40.909 Epilepsy, unspecified, not intractable, without status epilepticus; Z88.0 Allergy status to penicillin; Z68.32 Body mass index [BMI] 32.0-32.9, adult; Z79.899 Other long term (current) drug therapy
CPT/HCPCS: 36415; 36600; 71045; 71275; 76376; 80048; 80053; 80164; 81000; 82550; 82728; 82803-TC; 82962; 83036; 83605; 83615; 83735; 83880; 84484; 85025; 85379; 85384; 85610-TC; 85651-TC; 85730-TC; 86140; 86886; 86900; 86901; 87040-TC; 87070-TC; 87081; 87086; 87205-TC; 92610-GN; 93005; 94760; 96365; 96375; 99285; G0378; J0696; J1100; J1650; J1956; J2060; J2185; J2270; J2405; J3370; J3480; J7050; J7060; Q0144; Q9967; U0003

== ENCOUNTER 2020-12-17 02:23 | Inpatient (IN) | payer OTHER, SELFPAY ==
[~2020-12-17] VITALS: Ht 167.6 cm; Wt 80.3 kg
[2020-12-17 02:23] VITALS: BP_SYST 107
[~2020-12-17 02:23] MED LIST changes: -IBUP-1969 PO; +MIRT-92 PO; -MIRT30TA7 PO
[2020-12-17] MEDS ORDERED: OXYMETAZOLINE HCL 0.05% NASAL SPRAY NS ONE ×2 (02:30→03:00)
[2020-12-17] MEDS ORDERED: fentaNYL CITRATE/PF 100 MCG/2 ML AMP IVP ONE (02:30)
[2020-12-17] MEDS ORDERED: NACL 0.9% 1,000 ML IV SCH (03:00)
[2020-12-17 04:29] LABS: HEMATOCRIT 37.8 % (36-48); HEMOGLOBIN 12.3 g/dL (12.0-16.0); MEAN CORPUSCULAR HEMOGLOBIN 28 pg (27-31); MEAN CORPUSCULAR HGB CONC 33 % (32-36); MEAN CORPUSCULAR VOLUME 86 fL (79.0-98.0); PLATELET COUNT (AUTO) 454 K/uL (130-430); RED BLOOD CELL COUNT(AUTO) 4.39 MIL/uL (4.2-6.2); RED CELL DISTRIBUTION WIDTH 15.9 % (9.0-15.0); WHITE BLOOD COUNT (AUTO) 17.8 K/uL (4.8-10.8)
[2020-12-17 04:44] LABS: ANION GAP 8 (5-15); CALCIUM 8.8 mg/dL (8.4-11.0); CHLORIDE 100 mmol/L (98-107); CREATININE 0.65 mg/dL (0.55-1.30); GLUCOSE 153 mg/dL (70-99); SODIUM SERUM 138 mmol/L (136-145); UREA NITROGEN, BLOOD 13 mg/dL (8-21)
[2020-12-17 04:45] LABS: PROTHROMBIN TIME 10.4 SECS (9.5-12.5)
[2020-12-17 04:57] LABS: GFR AFRICAN AMERICAN 117 mL/min (>90)
[2020-12-17 04:59] LABS: ALANINE AMINOTRANSFERASE 18 U/L (12-78); ALBUMIN 2.9 g/dL (3.4-4.8); ASPARTATE AMINOTRANSFERASE 17 U/L (10-37); TOTAL BILIRUBIN 0.2 mg/dL (0.0-1.0)
[2020-12-17] MEDS ORDERED: cefTRIAXone 1 GM IVPB PREMIX 50 ML IV ONE (05:45)
[2020-12-17] MEDS ORDERED: AZITHROMYCIN 500 MG in NS 250 ML IV ONE (05:45)
[2020-12-17] MEDS ORDERED: VANCOMYCIN HCL 1,000 MG in NS 250 ML IV ONE (05:45)
[2020-12-17] MEDS ORDERED: AZITHROMYCIN 500 MG/VIAL (ZITHROMAX) IV ONE (07:26)
[2020-12-17] MEDS ORDERED: PROCHLORPERAZINE EDISYLATE 10 MG/2 ML VIAL IVP ONE (08:15)
[2020-12-17] MEDS ORDERED: MORPHINE 2 MG/ML INJ. SYRINGE IVP ONE (08:15)
[2020-12-17] MEDS ORDERED: OMEP20CA15 PO (08:50)
[2020-12-17] MEDS ORDERED: SENN8.6T19 PO (08:52)
[2020-12-17] MEDS ORDERED: ACET325T53 PO (08:52)
[2020-12-17] MEDS ORDERED: CARB15DR OP (08:52)
[2020-12-17] MEDS ORDERED: MULT-1117 PO (08:52)
[2020-12-17] MEDS ORDERED: OSCD500 PO (08:53)
[2020-12-17] MEDS ORDERED: VANCOMYCIN HCL 1000 MG/VIAL IV ONE ×2 (09:02→09:10)
[2020-12-17 10:20] VITALS: BP_SYST 154
[2020-12-17] MEDS ORDERED: ALBUTEROL SULFATE 0.083% 2.5 MG/3 ML VIAL.NEB INH PRN (11:30)
[2020-12-17] MEDS ORDERED: IPRATROPIUM BROM 0.5 MG/2.5 ML VIAL.NEB (ATROVENT) INH PRN (11:30)
[2020-12-17 12:00] VITALS: BP_SYST 101
[2020-12-17] MEDS: PIPERACILLIN/TAZO 3.375/DEX-IS 50 ML IV SCH ×3 (14:00→23:24)
[2020-12-17] MEDS: HYDROcodone/ACETAMIN 5-325 MG TAB (NORCO/ VICODIN) PO PRN ×2 (15:03→21:03)
[2020-12-17 16:00] VITALS: BP_SYST 110
[2020-12-17 17:08] VITALS: BP_SYST 110
[2020-12-17 20:00] VITALS: BP_SYST 130
[2020-12-17] MEDS: FERROUS SULFATE 325 MG TABLET.DR PO SCH (20:23)
[2020-12-17] MEDS: MIRTAZAPINE 15 MG TABLET PO SCH (20:24)
[2020-12-17] MEDS: DIVALPROEX SODIUM 250 MG TABLET(DEPAKOTE) PO SCH (20:24)
[2020-12-17] MEDS: BISACODYL 10 MG/SUPPOSITORY RC PRN (21:00)
[2020-12-18 00:19] VITALS: BP_SYST 151
[2020-12-18] MEDS: PIPERACILLIN/TAZO 3.375/DEX-IS 50 ML IV SCH ×4 (05:44→23:52)
[2020-12-18] MEDS: HYDROcodone/ACETAMIN 5-325 MG TAB (NORCO/ VICODIN) PO PRN ×2 (05:46→11:29)
[2020-12-18] MEDS: IPRATROPIUM BROM 0.5 MG/2.5 ML VIAL.NEB (ATROVENT) INH SCH ×5 (07:00→23:00)
[2020-12-18] MEDS: ALBUTEROL SULFATE 0.083% 2.5 MG/3 ML VIAL.NEB INH SCH ×5 (07:00→23:00)
[2020-12-18 08:06] VITALS: BP_SYST 160
[2020-12-18] MEDS: FERROUS SULFATE 325 MG TABLET.DR PO SCH ×2 (08:26→21:18)
[2020-12-18] MEDS: DIVALPROEX SODIUM 250 MG TABLET(DEPAKOTE) PO SCH ×2 (08:26→21:18)
[2020-12-18] MEDS: PANTOPRAZOLE SODIUM 40 MG TAB PO SCH (08:26)
[2020-12-18] MEDS: BACLOFEN 10 MG TABLET PO SCH (08:26)
[2020-12-18] MEDS: LamoTRIgine 100 MG TABLET PO SCH (08:26)
[2020-12-18] MEDS: RIVAROXABAN 10 MG TABLET PO SCH (08:27)
[2020-12-18 10:59] LABS: BASOPHILS # (AUTO) 0.1 K/uL (0.0-0.2); BASOPHILS % (AUTO) 0.6 % (0.0-2.0); EOSINOPHILS % (AUTO) 0.1 % (0.0-4.0); HEMATOCRIT 30.4 % (36-48); LYMPHOCYTES # (AUTO) 2.4 K/uL (1.0-5.5); LYMPHOCYTES % (AUTO) 19.1 % (20.5-51.5); MEAN CORPUSCULAR HEMOGLOBIN 28 pg (27-31); MEAN CORPUSCULAR HGB CONC 33 % (32-36); MEAN CORPUSCULAR VOLUME 86 fL (79.0-98.0); MONOCYTES # (AUTO) 1.1 K/uL (0.0-1.0); MONOCYTES % (AUTO) 8.6 % (1.7-9.3); NEUTROPHILS % (AUTO) 71.6 % (40.0-70.0); PLATELET COUNT (AUTO) 289 K/uL (130-430); RED BLOOD CELL COUNT(AUTO) 3.55 MIL/uL (4.2-6.2); RED CELL DISTRIBUTION WIDTH 16.4 % (9.0-15.0); WHITE BLOOD COUNT (AUTO) 12.6 K/uL (4.8-10.8)
[2020-12-18 11:12] LABS: CREATININE 0.5 mg/dL (0.55-1.30); POTASSIUM 3.4 mmol/L (3.5-5.1)
[2020-12-18 11:18] LABS: ALBUMIN 2.8 g/dL (3.4-4.8); TOTAL BILIRUBIN 0.2 mg/dL (0.0-1.0)
[2020-12-18 12:20] VITALS: BP_SYST 135
[2020-12-18 15:26] VITALS: BP_SYST 145
[2020-12-18 20:00] VITALS: BP_SYST 158
[2020-12-18] MEDS: MIRTAZAPINE 15 MG TABLET PO SCH (21:17)
[2020-12-18] MEDS: ONDANSETRON HCL 4 MG/2 ML VIAL IVP PRN (23:53)
[2020-12-19] VITALS: BP_SYST 156
[2020-12-19] MEDS: ALBUTEROL SULFATE 0.083% 2.5 MG/3 ML VIAL.NEB INH SCH ×6 (03:00→23:00)
[2020-12-19] MEDS: IPRATROPIUM BROM 0.5 MG/2.5 ML VIAL.NEB (ATROVENT) INH SCH ×6 (03:00→23:00)
[2020-12-19] MEDS: PIPERACILLIN/TAZO 3.375/DEX-IS 50 ML IV SCH ×4 (05:27→23:26)
[2020-12-19 08:00] VITALS: BP_SYST 137
[2020-12-19] MEDS: FERROUS SULFATE 325 MG TABLET.DR PO SCH ×2 (08:40→20:30)
[2020-12-19] MEDS: DIVALPROEX SODIUM 250 MG TABLET(DEPAKOTE) PO SCH ×2 (08:40→20:30)
[2020-12-19] MEDS: LamoTRIgine 100 MG TABLET PO SCH (08:40)
[2020-12-19] MEDS: PANTOPRAZOLE SODIUM 40 MG TAB PO SCH (08:40)
[2020-12-19] MEDS: BACLOFEN 10 MG TABLET PO SCH (08:40)
[2020-12-19] MEDS: RIVAROXABAN 10 MG TABLET PO SCH (08:41)
[2020-12-19 16:00] VITALS: BP_SYST 142
[2020-12-19 20:00] VITALS: BP_SYST 120
[2020-12-19] MEDS: MIRTAZAPINE 15 MG TABLET PO SCH (20:30)
[2020-12-19] MEDS: ONDANSETRON HCL 4 MG/2 ML VIAL IVP PRN (22:23)
[2020-12-20] VITALS: BP_SYST 128
[2020-12-20] MEDS: HYDROcodone/ACETAMIN 5-325 MG TAB (NORCO/ VICODIN) PO PRN ×3 (02:34→16:29)
[2020-12-20] MEDS: IPRATROPIUM BROM 0.5 MG/2.5 ML VIAL.NEB (ATROVENT) INH SCH ×5 (03:00→19:52)
[2020-12-20] MEDS: ALBUTEROL SULFATE 0.083% 2.5 MG/3 ML VIAL.NEB INH SCH ×5 (03:00→19:52)
[2020-12-20] MEDS: PIPERACILLIN/TAZO 3.375/DEX-IS 50 ML IV SCH ×4 (05:32→23:40)
[2020-12-20 08:10] VITALS: BP_SYST 128
[2020-12-20] MEDS: DIVALPROEX SODIUM 250 MG TABLET(DEPAKOTE) PO SCH ×2 (09:16→20:49)
[2020-12-20] MEDS: BACLOFEN 10 MG TABLET PO SCH (09:16)
[2020-12-20] MEDS: FERROUS SULFATE 325 MG TABLET.DR PO SCH ×2 (09:16→20:48)
[2020-12-20] MEDS: PANTOPRAZOLE SODIUM 40 MG TAB PO SCH (09:16)
[2020-12-20] MEDS: LamoTRIgine 100 MG TABLET PO SCH (09:17)
[2020-12-20] MEDS: RIVAROXABAN 10 MG TABLET PO SCH (09:30)
[2020-12-20 11:41] VITALS: BP_SYST 125
[2020-12-20 15:50] VITALS: BP_SYST 125
[2020-12-20 16:00] VITALS: BP_SYST 137
[2020-12-20 20:00] VITALS: BP_SYST 126
[2020-12-20] MEDS: MIRTAZAPINE 15 MG TABLET PO SCH (20:49)
[2020-12-20] MEDS: HYDROcodone/ACETAMIN 10-325 MG TAB PO PRN (20:49)
[2020-12-21] MEDS: HYDROcodone/ACETAMIN 5-325 MG TAB (NORCO/ VICODIN) PO PRN ×2 (00:07→16:40)
[2020-12-21 01:00] VITALS: BP_SYST 100
[2020-12-21] MEDS: HYDROcodone/ACETAMIN 10-325 MG TAB PO PRN ×3 (03:14→22:28)
[2020-12-21] MEDS: PIPERACILLIN/TAZO 3.375/DEX-IS 50 ML IV SCH ×4 (05:21→23:18)
[2020-12-21] MEDS: IPRATROPIUM BROM 0.5 MG/2.5 ML VIAL.NEB (ATROVENT) INH SCH ×4 (07:36→19:40)
[2020-12-21] MEDS: ALBUTEROL SULFATE 0.083% 2.5 MG/3 ML VIAL.NEB INH SCH ×4 (07:36→19:40)
[2020-12-21 07:51] VITALS: BP_SYST 129
[2020-12-21] MEDS: DIVALPROEX SODIUM 250 MG TABLET(DEPAKOTE) PO SCH ×2 (10:02→22:28)
[2020-12-21] MEDS: PANTOPRAZOLE SODIUM 40 MG TAB PO SCH (10:02)
[2020-12-21] MEDS: BACLOFEN 10 MG TABLET PO SCH (10:02)
[2020-12-21] MEDS: FERROUS SULFATE 325 MG TABLET.DR PO SCH ×2 (10:02→22:29)
[2020-12-21] MEDS: LamoTRIgine 100 MG TABLET PO SCH (10:03)
[2020-12-21] MEDS: RIVAROXABAN 10 MG TABLET PO SCH (10:05)
[2020-12-21 11:29] VITALS: BP_SYST 141
[2020-12-21 16:01] VITALS: BP_SYST 167
[2020-12-21 22:00] VITALS: BP_SYST 132
[2020-12-21] MEDS: MIRTAZAPINE 15 MG TABLET PO SCH (22:28)
[2020-12-21] MEDS: ONDANSETRON HCL 4 MG/2 ML VIAL IVP PRN (22:28)
[2020-12-22 00:50] VITALS: BP_SYST 130
[2020-12-22] MEDS: PIPERACILLIN/TAZO 3.375/DEX-IS 50 ML IV SCH ×3 (05:48→18:18)
[2020-12-22] MEDS: HYDROcodone/ACETAMIN 10-325 MG TAB PO PRN ×2 (05:48→21:49)
[2020-12-22] MEDS: IPRATROPIUM BROM 0.5 MG/2.5 ML VIAL.NEB (ATROVENT) INH SCH ×4 (07:00→23:00)
[2020-12-22] MEDS: ALBUTEROL SULFATE 0.083% 2.5 MG/3 ML VIAL.NEB INH SCH ×4 (07:00→23:00)
[2020-12-22 10:30] VITALS: BP_SYST 121
[2020-12-22] MEDS: BACLOFEN 10 MG TABLET PO SCH (11:59)
[2020-12-22] MEDS: FERROUS SULFATE 325 MG TABLET.DR PO SCH ×2 (11:59→21:48)
[2020-12-22] MEDS: DIVALPROEX SODIUM 250 MG TABLET(DEPAKOTE) PO SCH ×2 (11:59→21:47)
[2020-12-22] MEDS: PANTOPRAZOLE SODIUM 40 MG TAB PO SCH (12:00)
[2020-12-22] MEDS: RIVAROXABAN 10 MG TABLET PO SCH (12:01)
[2020-12-22] MEDS: LamoTRIgine 100 MG TABLET PO SCH (12:02)
[2020-12-22 12:35] VITALS: BP_SYST 114
[2020-12-22 17:47] VITALS: BP_SYST 116
[2020-12-22 21:34] VITALS: BP_SYST 146
[2020-12-22] MEDS: MIRTAZAPINE 15 MG TABLET PO SCH (21:47)
[2020-12-22] MEDS: ONDANSETRON HCL 4 MG/2 ML VIAL IVP PRN (21:48)
[2020-12-22] MEDS ORDERED: ALPRAZolam 0.25 MG TABLET PO ONE (23:00)
[2020-12-23] MEDS: PIPERACILLIN/TAZO 3.375/DEX-IS 50 ML IV SCH ×5 (00:05→23:25)
[2020-12-23 00:33] VITALS: BP_SYST 140
[2020-12-23] MEDS: IPRATROPIUM BROM 0.5 MG/2.5 ML VIAL.NEB (ATROVENT) INH SCH ×6 (03:00→23:00)
[2020-12-23] MEDS: ALBUTEROL SULFATE 0.083% 2.5 MG/3 ML VIAL.NEB INH SCH ×6 (03:00→23:00)
[2020-12-23 08:18] VITALS: BP_SYST 118
[2020-12-23 08:36] VITALS: BP_SYST 118
[2020-12-23] MEDS: BACLOFEN 10 MG TABLET PO SCH (08:56)
[2020-12-23] MEDS: DIVALPROEX SODIUM 250 MG TABLET(DEPAKOTE) PO SCH ×2 (08:56→22:06)
[2020-12-23] MEDS: FERROUS SULFATE 325 MG TABLET.DR PO SCH ×2 (08:56→22:06)
[2020-12-23] MEDS: LamoTRIgine 100 MG TABLET PO SCH (08:57)
[2020-12-23] MEDS: PANTOPRAZOLE SODIUM 40 MG TAB PO SCH (08:57)
[2020-12-23] MEDS: RIVAROXABAN 10 MG TABLET PO SCH (09:09)
[2020-12-23 11:33] VITALS: BP_SYST 107
[2020-12-23 15:29] VITALS: BP_SYST 110
[2020-12-23] MEDS: MIRTAZAPINE 15 MG TABLET PO SCH (22:06)
[2020-12-23] MEDS: HYDROcodone/ACETAMIN 10-325 MG TAB PO PRN (22:07)
[2020-12-23] MEDS: ONDANSETRON HCL 4 MG/2 ML VIAL IVP PRN (22:07)
[2020-12-24] VITALS (7 sets, daily range): BP systolic 113–138
[2020-12-24] MEDS ORDERED: LORazepam 2 MG/ML VIAL IVP ONE
[2020-12-24] MEDS: ALBUTEROL SULFATE 0.083% 2.5 MG/3 ML VIAL.NEB INH SCH ×6 (03:00→23:46)
[2020-12-24] MEDS: IPRATROPIUM BROM 0.5 MG/2.5 ML VIAL.NEB (ATROVENT) INH SCH ×6 (03:00→23:47)
[2020-12-24] MEDS: PIPERACILLIN/TAZO 3.375/DEX-IS 50 ML IV SCH ×3 (05:35→19:02)
[2020-12-24] MEDS: PANTOPRAZOLE SODIUM 40 MG TAB PO SCH (08:56)
[2020-12-24] MEDS: LamoTRIgine 100 MG TABLET PO SCH (08:56)
[2020-12-24] MEDS: FERROUS SULFATE 325 MG TABLET.DR PO SCH ×2 (08:57→21:56)
[2020-12-24] MEDS: BACLOFEN 10 MG TABLET PO SCH (08:57)
[2020-12-24] MEDS: DIVALPROEX SODIUM 250 MG TABLET(DEPAKOTE) PO SCH ×2 (08:57→21:55)
[2020-12-24] MEDS: RIVAROXABAN 10 MG TABLET PO SCH (09:02)
[2020-12-24 12:16] LABS: BASOPHILS % (AUTO) 0.5 % (0.0-2.0); EOSINOPHILS # (AUTO) 0.3 K/uL (0.0-0.4); EOSINOPHILS % (AUTO) 3.7 % (0.0-4.0); HEMATOCRIT 27.5 % (36-48); HEMOGLOBIN 9.2 g/dL (12.0-16.0); LYMPHOCYTES # (AUTO) 2.3 K/uL (1.0-5.5); LYMPHOCYTES % (AUTO) 33.4 % (20.5-51.5); MEAN CORPUSCULAR HEMOGLOBIN 29 pg (27-31); MEAN CORPUSCULAR HGB CONC 33 % (32-36); MEAN CORPUSCULAR VOLUME 86 fL (79.0-98.0); MONOCYTES # (AUTO) 0.6 K/uL (0.0-1.0); MONOCYTES % (AUTO) 8.5 % (1.7-9.3); NEUTROPHILS # (AUTO) 3.7 K/uL (1.8-7.7); NEUTROPHILS % (AUTO) 53.9 % (40.0-70.0); PLATELET COUNT (AUTO) 301 K/uL (130-430); RED BLOOD CELL COUNT(AUTO) 3.21 MIL/uL (4.2-6.2); WHITE BLOOD COUNT (AUTO) 6.9 K/uL (4.8-10.8)
[2020-12-24 12:32] LABS: CALCIUM 8.9 mg/dL (8.4-11.0); CREATININE 0.42 mg/dL (0.55-1.30)
[2020-12-24 12:37] LABS: ALBUMIN 2.5 g/dL (3.4-4.8); TOTAL BILIRUBIN 0.1 mg/dL (0.0-1.0)
[2020-12-24 12:43] LABS: POTASSIUM 2.7 mmol/L (3.5-5.1)
[2020-12-24] MEDS ORDERED: KCL IV SCH (13:15)
[2020-12-24] MEDS ORDERED: [UNRECOGNIZED DRUG - OTHER] IV SCH (13:15)
[2020-12-24] MEDS ORDERED: D5 IV SCH (13:15)
[2020-12-24] MEDS ORDERED: POTASSIUM CHLORIDE 20 MEQ TAB.PRT.SR PO ONE (13:15)
[2020-12-24] MEDS ORDERED: POTASSIUM CHLORIDE 40 MEQ in D5W 250 ML IV ONE (13:30)
[2020-12-24] MEDS: MIRTAZAPINE 15 MG TABLET PO SCH (21:56)
[2020-12-24] MEDS: HYDROcodone/ACETAMIN 10-325 MG TAB PO PRN (21:56)
[2020-12-25] MEDS: PIPERACILLIN/TAZO 3.375/DEX-IS 50 ML IV SCH ×3 (00:26→11:42)
[2020-12-25] MEDS: BISACODYL 10 MG/SUPPOSITORY RC PRN ×2 (00:26→02:09)
[2020-12-25 01:45] VITALS: BP_SYST 150
[2020-12-25] MEDS: ALBUTEROL SULFATE 0.083% 2.5 MG/3 ML VIAL.NEB INH SCH ×2 (03:00→07:11)
[2020-12-25] MEDS: IPRATROPIUM BROM 0.5 MG/2.5 ML VIAL.NEB (ATROVENT) INH SCH ×2 (03:00→07:11)
[2020-12-25] MEDS: HYDROcodone/ACETAMIN 10-325 MG TAB PO PRN (04:47)
[2020-12-25 08:00] VITALS: BP_SYST 135
[2020-12-25] MEDS: LamoTRIgine 100 MG TABLET PO SCH (09:13)
[2020-12-25] MEDS: FERROUS SULFATE 325 MG TABLET.DR PO SCH (09:14)
[2020-12-25] MEDS: BACLOFEN 10 MG TABLET PO SCH (09:14)
[2020-12-25] MEDS: DIVALPROEX SODIUM 250 MG TABLET(DEPAKOTE) PO SCH (09:14)
[2020-12-25] MEDS: PANTOPRAZOLE SODIUM 40 MG TAB PO SCH (09:14)
[2020-12-25] MEDS: RIVAROXABAN 10 MG TABLET PO SCH (09:19)
[2020-12-25 09:28] VITALS: BP_SYST 135
[2020-12-25 11:21] LABS: CALCIUM 9.7 mg/dL (8.4-11.0); CREATININE 0.45 mg/dL (0.55-1.30); POTASSIUM 3.4 mmol/L (3.5-5.1)
== END 2020-12-25 11:25 | DRG 871 ==
LOC: SED 02:23 → STU 07:14
PROVIDERS: ADMIT Internal Medicine Hospice and Palliative Medicine; ATTEND Internal Medicine Hospice and Palliative Medicine
DX: A41.9 Sepsis, unspecified organism (principal); J69.0 Pneumonitis due to inhalation of food and vomit; J96.01 Acute respiratory failure with hypoxia; J44.0 Chronic obstructive pulmonary disease with (acute) lower respiratory infection; R04.0 Epistaxis; I10 Essential (primary) hypertension; Z20.822 Contact with and (suspected) exposure to COVID-19; Z86.73 Personal history of transient ischemic attack (TIA), and cerebral infarction without residual deficits; Z88.0 Allergy status to penicillin; Z88.2 Allergy status to sulfonamides; Z88.8 Allergy status to other drugs, medicaments and biological substances; Z79.899 Other long term (current) drug therapy
CPT/HCPCS: 36415; 71045; 80048; 80053; 83051; 83605; 83880; 84132; 84484; 85014; 85025; 85048; 85049-TC; 85610-TC; 85730-TC; 86886; 86900; 86901; 87040-TC; 87081; 93005; 94640; 94760; 96361; 96365; 96367; 96375; 99291; G0378; J0456; J0696; J0780; J2060; J2270; J2405; J2543; J3010; J3370; J3480; J7060; J7613; U0003